=== PATIENT | female | born 1965 | race African-American/Black ===

== ENCOUNTER 2022-03-04 05:00 | Inpatient (IN) ==
[2022-03-04] MEDS ORDERED: SODIUM CHLORIDE 0.9% 500 ML IV STA (05:37)
[2022-03-04 06:17] LABS: Amorphous Crystals,Urine Occasional /HPF (Few); Bacteria,Urine Occasional /HPF (Few); Hyaline Casts,Urine 1 /LPF (0-3); Mucus,Urine Occasional /LPF (Occasional); RBC,Urine 2 /HPF (0-4); Squamous Epithelial Cell,Urine Occasional /HPF (0-10); White Blood Cell Casts,Urine 1 /LPF (<1)
[2022-03-04 06:18] LABS: Bilirubin,Urine Negative (Negative); Blood, Urine Negative (Negative); Glucose,Urine (UA) Negative (Negative); Ketones,Urine Negative (Negative); Nitrite,Urine Negative (Negative); Protein,Urine 30 mg/dL (Negative); Urine Appearance Clear (Clear); Urine Color Yellow (Yellow)
[2022-03-04 06:19] LABS: Urine Urobilinogen 0.2 eU/dL (<2.0)
[2022-03-04 06:20] LABS: Albumin 3.4 G/DL (3.4-5.0); Bilirubin,Total 0.6 MG/DL (0.20-1.00); Calcium 9.2 MG/DL (8.5-10.1); Osmolality,Calculated 278.3 MOS/KG (273-304); Potassium 3.8 MMOL/L (3.5-5.1); Total Protein 8.5 G/DL (6.4-8.2)
[2022-03-04 06:36] LABS: Basophils % 0.4 % (0.0-0.8); Eosinophils # 0.1 10*3/uL (0.0-0.87); Eosinophils % 0.7 % (0.00-10.9); Hemoglobin 7.4 GM/DL (12.0-16.0); Immature Granulocytes % 0.3 %; Immature Granulocytes Absolute 0.02 #; Lymphocytes # 1.3 10*3/uL (1.4-4.0); Lymphocytes % 17.8 % (21.3-54.2); Mean Corpuscular HGB Conc 27.2 GM/DL (32-36); Mean Corpuscular Volume 64.9 FL (87-102); Monocytes # 0.4 10*3/uL (0.11-0.8); Neutrophils % 74.8 % (38.7-73.9); Platelet Count 472 T/CUMM (130-400); Red Blood Count 4.19 MC/CUMM (3.8-5.5); Red Cell Distribution Width 20.5 % (9.3-17.3)
[2022-03-04 06:37] LABS: Hematocrit 27.2 VOL% (35.7-47.0)
[2022-03-04 06:42] LABS: Hypochromia Slight; Target Cells Slight
[2022-03-04 06:43] LABS: Platelet Estimate Increased
[2022-03-04] MEDS ORDERED: PIPERACILLIN/TAZOBACTAM 3,375 MG in SODIUM CHLORIDE 0.9% 100 ML IV STA (08:01)
[2022-03-04] MEDS ORDERED: MORPHINE 2 MG/1 ML SYRINGE IV PRN (08:26)
[2022-03-04] MEDS ORDERED: SODIUM CHLORIDE 0.9% 1,000 ML IV PRN (08:26)
[2022-03-04 09:02] LABS: % Iron Saturation 3.6 % (18-50); Ferritin 4.5 ng/mL (8-252)
[2022-03-04] MEDS: SODIUM CHLORIDE 0.9% 1,000 ML IV SCH ×2 (19:57→22:00)
[2022-03-04 21:38] LABS: Hematocrit 35.6 VOL% (35.7-47.0); Hemoglobin 10.8 GM/DL (12.0-16.0)
[2022-03-05 05:13] LABS: Basophils % 0.6 % (0.0-0.8); Eosinophils # 0.1 10*3/uL (0.0-0.87); Hematocrit 35.8 VOL% (35.7-47.0); Hemoglobin 10.8 GM/DL (12.0-16.0); Immature Granulocytes % 0.3 %; Immature Granulocytes Absolute 0.02 #; Lymphocytes # 1.5 10*3/uL (1.4-4.0); Lymphocytes % 22.2 % (21.3-54.2); Mean Corpuscular HGB Conc 30.2 GM/DL (32-36); Mean Corpuscular Volume 72.5 FL (87-102); Mean Platelet Volume 10.3 FL (9.6-12.0); Monocytes # 0.5 10*3/uL (0.11-0.8); Monocytes % 7.3 % (1.7-12.7); Neutrophils % 67.6 % (38.7-73.9); Platelet Count 396 T/CUMM (130-400); Red Blood Count 4.94 MC/CUMM (3.8-5.5); Red Cell Distribution Width 26.8 % (9.3-17.3); White Blood Count 6.6 T/CUMM (4-12)
[2022-03-05 05:17] LABS: Calcium 8.6 MG/DL (8.5-10.1); Potassium 3.7 MMOL/L (3.5-5.1)
[2022-03-05 05:52] LABS: Anisocytosis 1+; Platelet Estimate Normal
[2022-03-05 05:53] LABS: Hypochromia 1+; Tear Drop Cells Few
[2022-03-05] MEDS: SODIUM CHLORIDE 0.9% 1,000 ML IV SCH ×3 (06:28→17:54)
[2022-03-05] MEDS: ONDANSETRON 4 MG/2 ML VIAL IV PRN (07:52)
[2022-03-05] MEDS: PANTOPRAZOLE 40 MG VIAL IV SCH (09:25)
[2022-03-05] MEDS: FERRIC GLUCONATE COMPLEX 125 MG in SODIUM CHLORIDE 0.9% 100 ML IV SCH (09:29)
[2022-03-05] MEDS ORDERED: BISACODYL 5 MG TABLET PO ONE (12:00)
[2022-03-06 05:23] LABS: Basophils % 0.4 % (0.0-0.8); Eosinophils # 0.1 10*3/uL (0.0-0.87); Eosinophils % 1.8 % (0.00-10.9); Hematocrit 36.8 VOL% (35.7-47.0); Hemoglobin 11.1 GM/DL (12.0-16.0); Immature Granulocytes % 0.1 %; Immature Granulocytes Absolute 0.01 #; Lymphocytes # 1.5 10*3/uL (1.4-4.0); Lymphocytes % 20.6 % (21.3-54.2); Mean Corpuscular HGB Conc 30.2 GM/DL (32-36); Mean Corpuscular Volume 72.2 FL (87-102); Mean Platelet Volume 10.4 FL (9.6-12.0); Monocytes # 0.6 10*3/uL (0.11-0.8); Monocytes % 8.1 % (1.7-12.7); Platelet Count 405 T/CUMM (130-400); Red Cell Distribution Width 27.1 % (9.3-17.3); White Blood Count 7.1 T/CUMM (4-12)
[2022-03-06 05:45] LABS: Calcium 8.8 MG/DL (8.5-10.1); Osmolality,Calculated 277.3 MOS/KG (273-304); Potassium 3.6 MMOL/L (3.5-5.1)
[2022-03-06 05:53] LABS: Platelet Estimate Normal
[2022-03-06 05:54] LABS: Anisocytosis 1+; Hypochromia 1+; Macrocytosis 1+
[2022-03-06 05:55] LABS: Target Cells Few
[2022-03-06] MEDS: FERRIC GLUCONATE COMPLEX 125 MG in SODIUM CHLORIDE 0.9% 100 ML IV SCH (09:31)
[2022-03-06] MEDS: PANTOPRAZOLE 40 MG VIAL IV SCH (09:34)
[2022-03-06] MEDS: SODIUM CHLORIDE 0.9% 1,000 ML IV SCH ×2 (12:17→16:53)
[2022-03-06] MEDS ORDERED: POLYETHYLENE GLYCOL POWDER 255 GM BOTTLE PO ONE ×2 (15:28→18:00)
[2022-03-07] MEDS: SODIUM CHLORIDE 0.9% 1,000 ML IV SCH ×2 (04:39→16:30)
[2022-03-07 05:14] LABS: Calcium 9.3 MG/DL (8.5-10.1); Osmolality,Calculated 282.8 MOS/KG (273-304); Potassium 3.5 MMOL/L (3.5-5.1)
[2022-03-07 05:18] LABS: Basophils % 0.5 % (0.0-0.8); Eosinophils # 0.1 10*3/uL (0.0-0.87); Eosinophils % 0.7 % (0.00-10.9); Hematocrit 37.8 VOL% (35.7-47.0); Hemoglobin 11.4 GM/DL (12.0-16.0); Immature Granulocytes % 0.4 %; Immature Granulocytes Absolute 0.03 #; Lymphocytes # 1.4 10*3/uL (1.4-4.0); Lymphocytes % 16.3 % (21.3-54.2); Mean Corpuscular HGB Conc 30.2 GM/DL (32-36); Mean Corpuscular Volume 71.5 FL (87-102); Mean Platelet Volume 10.8 FL (9.6-12.0); Monocytes # 0.6 10*3/uL (0.11-0.8); Monocytes % 6.6 % (1.7-12.7); Neutrophils % 75.5 % (38.7-73.9); Platelet Count 379 T/CUMM (130-400); Red Blood Count 5.29 MC/CUMM (3.8-5.5); Red Cell Distribution Width 27.8 % (9.3-17.3); White Blood Count 8.4 T/CUMM (4-12)
[2022-03-07 05:24] LABS: Hypochromia Slight; Lymphocytes 14 % (20-55); Microcytosis Slight; Platelet Estimate Adequate; Total Cells Counted 100
[2022-03-07] MEDS ORDERED: LACTATED RINGERS 1,000 ML IV SCH (07:00)
[2022-03-07] MEDS: FERRIC GLUCONATE COMPLEX 125 MG in SODIUM CHLORIDE 0.9% 100 ML IV SCH (09:08)
[2022-03-07] MEDS: PANTOPRAZOLE 40 MG VIAL IV SCH (09:08)
[2022-03-07] MEDS ORDERED: propofoL 200 MG/20 ML VIAL IV ONE ×2 (12:11→12:26)
[2022-03-07] MEDS ORDERED: LIDOCAINE 2% 5 ML VIAL ONE (12:11)
[2022-03-08] MEDS: SODIUM CHLORIDE 0.9% 1,000 ML IV SCH (05:37)
[2022-03-08 05:42] LABS: Basophils % 0.6 % (0.0-0.8); Eosinophils # 0.2 10*3/uL (0.0-0.87); Eosinophils % 2.4 % (0.00-10.9); Hematocrit 36.8 VOL% (35.7-47.0); Immature Granulocytes % 0.3 %; Immature Granulocytes Absolute 0.02 #; Lymphocytes % 14.8 % (21.3-54.2); Mean Corpuscular HGB Conc 29.9 GM/DL (32-36); Mean Corpuscular Volume 72.6 FL (87-102); Mean Platelet Volume 10.4 FL (9.6-12.0); Monocytes # 0.5 10*3/uL (0.11-0.8); Monocytes % 6.8 % (1.7-12.7); Neutrophils % 75.1 % (38.7-73.9); Platelet Count 395 T/CUMM (130-400); Red Blood Count 5.07 MC/CUMM (3.8-5.5); Red Cell Distribution Width 28.5 % (9.3-17.3)
[2022-03-08 06:00] LABS: Hypochromia Slight; Target Cells Slight; Tear Drop Cells Slight
[2022-03-08 06:01] LABS: Microcytosis 1+; Ovalocytes Slight; Spherocytes Slight
[2022-03-08 06:02] LABS: Platelet Estimate Normal
[2022-03-08 06:08] LABS: Calcium 9.1 MG/DL (8.5-10.1); Potassium 3.2 MMOL/L (3.5-5.1)
[2022-03-08] MEDS ORDERED: LIDOCAINE 2% 5 ML VIAL ONE (06:28)
[2022-03-08] MEDS ORDERED: fentaNYL 100 MCG/2 ML VIAL ONE ×3 (06:28→07:49)
[2022-03-08] MEDS ORDERED: ROCURONIUM 50 MG/5 ML VIAL IV ONE (06:28)
[2022-03-08] MEDS ORDERED: propofoL 200 MG/20 ML VIAL IV ONE (06:28)
[2022-03-08] MEDS ORDERED: MIDAZOLAM 2 MG/2 ML VIAL ONE (06:29)
[2022-03-08] MEDS ORDERED: BUPIVACAINE MPF 0.25% 30 ML VIAL ONE (06:42)
[2022-03-08] MEDS ORDERED: DEXAMETHASONE 4 MG/1 ML VIAL ONE ×2 (06:42→08:24)
[2022-03-08] MEDS ORDERED: ALBUMIN 5% 25.0 GM/500 ML VIAL IV ONE (07:08)
[2022-03-08] MEDS ORDERED: LIDOCAINE 2% TOP JELLY 20 ML VIAL INTRAURETH ONE (07:25)
[2022-03-08] MEDS ORDERED: LACTATED RINGERS 1,000 ML IV SCH (07:30)
[2022-03-08] MEDS ORDERED: ACETAMINOPHEN INJ 1,000 MG/100 ML VIAL IV ONE (08:22)
[2022-03-08] MEDS ORDERED: ONDANSETRON 4 MG/2 ML VIAL ONE (08:24)
[2022-03-08] MEDS ORDERED: GLYCOPYRROLATE 0.4 MG/2 ML VIAL ONE (08:25)
[2022-03-08] MEDS ORDERED: NEOSTIGMINE 10 MG/10 ML VIAL ONE (08:26)
[2022-03-08] MEDS ORDERED: SEVOFLURANE 1 UNIT/15 MINUTE INH ONE (08:43)
[2022-03-08] MEDS ORDERED: LACTATED RINGERS 1,000 ML IV ONE (08:46)
[2022-03-08 09:10] LABS: Bacteria,Urine Occasional /HPF (Few); Mucus,Urine Occasional /LPF (Occasional); RBC,Urine <1 /HPF (0-4); Squamous Epithelial Cell,Urine Occasional /HPF (0-10)
[2022-03-08 09:11] LABS: Urine Appearance Clear (Clear); Urine Color Yellow (Yellow)
[2022-03-08 09:12] LABS: Bilirubin,Urine Negative (Negative); Blood, Urine Trace mg/dL (Negative); Glucose,Urine (UA) Negative (Negative); Ketones,Urine 15 mg/dL (Negative); Nitrite,Urine Negative (Negative); Protein,Urine Negative (Negative); Urine Urobilinogen 0.2 eU/dL (<2.0)
[2022-03-08] MEDS ORDERED: ONDANSETRON 4 MG/2 ML VIAL IV PRN (09:36)
[2022-03-08] MEDS: HYDROmorphone 1 MG/1 ML SYRINGE IV PRN ×2 (09:40→09:48)
[2022-03-08] MEDS ORDERED: ALBUTEROL/IPRATROPIUM 3 ML NEB RESP TX PRN (09:57)
[2022-03-08] MEDS ORDERED: HYDROmorphone 1 MG/1 ML SYRINGE IV PRN (09:57)
[2022-03-08] MEDS: PANTOPRAZOLE 40 MG VIAL IV SCH (11:15)
[2022-03-08] MEDS: FERRIC GLUCONATE COMPLEX 125 MG in SODIUM CHLORIDE 0.9% 100 ML IV SCH (11:15)
[2022-03-08] MEDS: KETOROLAC 15 MG/1 ML VIAL IV SCH ×3 (12:32→23:49)
[2022-03-08] MEDS: POTASSIUM CHLORIDE RIDER 10 MEQ/100 ML PREMIX IV PRN ×4 (12:34→15:50)
[2022-03-08] MEDS: LACTATED RINGERS 1,000 ML IV SCH ×2 (12:34→20:09)
[2022-03-09] MEDS: LACTATED RINGERS 1,000 ML IV SCH ×2 (03:28→15:50)
[2022-03-09 04:44] LABS: Basophils % 0.1 % (0.0-0.8); Hematocrit 34.6 VOL% (35.7-47.0); Hemoglobin 10.6 GM/DL (12.0-16.0); Immature Granulocytes % 0.4 %; Immature Granulocytes Absolute 0.06 #; Lymphocytes % 6.4 % (21.3-54.2); Mean Corpuscular HGB Conc 30.6 GM/DL (32-36); Mean Corpuscular Volume 72.4 FL (87-102); Mean Platelet Volume 10.4 FL (9.6-12.0); Monocytes # 0.8 10*3/uL (0.11-0.8); Monocytes % 5.1 % (1.7-12.7); Platelet Count 363 T/CUMM (130-400); Red Blood Count 4.78 MC/CUMM (3.8-5.5); Red Cell Distribution Width 29.1 % (9.3-17.3)
[2022-03-09] MEDS: KETOROLAC 15 MG/1 ML VIAL IV SCH (05:02)
[2022-03-09 05:29] LABS: Calcium 9.2 MG/DL (8.5-10.1); Osmolality,Calculated 276.4 MOS/KG (273-304); Potassium 3.7 MMOL/L (3.5-5.1)
[2022-03-09] MEDS: PANTOPRAZOLE 40 MG VIAL IV SCH (08:43)
[2022-03-09] MEDS: FERRIC GLUCONATE COMPLEX 125 MG in SODIUM CHLORIDE 0.9% 100 ML IV SCH (08:47)
[2022-03-09] MEDS ORDERED: LACTATED RINGERS 1,000 ML IV ONE (10:32)
[2022-03-09] MEDS: PIPERACILLIN/TAZOBACTAM 3,375 MG in SODIUM CHLORIDE 0.9% 100 ML IV SCH ×2 (11:48→20:00)
[2022-03-10] MEDS: PIPERACILLIN/TAZOBACTAM 3,375 MG in SODIUM CHLORIDE 0.9% 100 ML IV SCH ×3 (03:08→18:10)
[2022-03-10] MEDS: HYDROmorphone 1 MG/1 ML SYRINGE IV PRN ×2 (04:31→20:40)
[2022-03-10 05:43] LABS: Basophils % 0.4 % (0.0-0.8); Eosinophils % 0.2 % (0.00-10.9); Hematocrit 33.6 VOL% (35.7-47.0); Hemoglobin 10.2 GM/DL (12.0-16.0); Immature Granulocytes % 0.5 %; Immature Granulocytes Absolute 0.05 #; Lymphocytes # 1.1 10*3/uL (1.4-4.0); Lymphocytes % 9.6 % (21.3-54.2); Mean Corpuscular HGB Conc 30.4 GM/DL (32-36); Mean Corpuscular Volume 73.2 FL (87-102); Mean Platelet Volume 10.7 FL (9.6-12.0); Monocytes # 0.7 10*3/uL (0.11-0.8); Monocytes % 6.2 % (1.7-12.7); Neutrophils % 83.1 % (38.7-73.9); Platelet Count 323 T/CUMM (130-400); Red Blood Count 4.59 MC/CUMM (3.8-5.5); Red Cell Distribution Width 30.4 % (9.3-17.3)
[2022-03-10 06:00] LABS: Osmolality,Calculated 278.3 MOS/KG (273-304); Potassium 3.7 MMOL/L (3.5-5.1)
[2022-03-10] MEDS: LACTATED RINGERS 1,000 ML IV SCH ×3 (08:24→15:45)
[2022-03-10] MEDS: PANTOPRAZOLE 40 MG VIAL IV SCH (08:27)
[2022-03-10] MEDS: POTASSIUM CHLORIDE RIDER 10 MEQ/100 ML PREMIX IV PRN (16:26)
[2022-03-11] MEDS: PIPERACILLIN/TAZOBACTAM 3,375 MG in SODIUM CHLORIDE 0.9% 100 ML IV SCH ×3 (02:02→20:49)
[2022-03-11] MEDS: LACTATED RINGERS 1,000 ML IV SCH ×5 (04:11→21:33)
[2022-03-11 06:09] LABS: Osmolality,Calculated 273.5 MOS/KG (273-304); Potassium 3.8 MMOL/L (3.5-5.1)
[2022-03-11 06:27] LABS: Basophils # 0.1 10*3/uL (0.0-0.2); Basophils % 0.6 % (0.0-0.8); Eosinophils # 0.2 10*3/uL (0.0-0.87); Hematocrit 33.9 VOL% (35.7-47.0); Hemoglobin 10.4 GM/DL (12.0-16.0); Immature Granulocytes % 0.4 %; Immature Granulocytes Absolute 0.04 #; Lymphocytes # 1.1 10*3/uL (1.4-4.0); Lymphocytes % 12.1 % (21.3-54.2); Mean Corpuscular HGB Conc 30.7 GM/DL (32-36); Mean Corpuscular Volume 73.5 FL (87-102); Monocytes # 0.6 10*3/uL (0.11-0.8); Monocytes % 6.2 % (1.7-12.7); Neutrophils % 78.7 % (38.7-73.9); Platelet Count 281 T/CUMM (130-400); Red Blood Count 4.61 MC/CUMM (3.8-5.5); White Blood Count 9.1 T/CUMM (4-12)
[2022-03-11 06:49] LABS: Eosinophils 2 % (0-10); Hypochromia Slight; Lymphocytes 9 % (20-55); Microcytosis Slight; Platelet Estimate Adequate; Total Cells Counted 100
[2022-03-11] MEDS: PANTOPRAZOLE 40 MG VIAL IV SCH (09:22)
[2022-03-11] MEDS: POTASSIUM CHLORIDE RIDER 10 MEQ/100 ML PREMIX IV PRN ×3 (09:23→10:49)
[2022-03-12] MEDS: PIPERACILLIN/TAZOBACTAM 3,375 MG in SODIUM CHLORIDE 0.9% 100 ML IV SCH ×3 (04:37→21:23)
[2022-03-12] MEDS: LACTATED RINGERS 1,000 ML IV SCH ×2 (04:39→21:23)
[2022-03-12 05:24] LABS: Basophils # 0.1 10*3/uL (0.0-0.2); Basophils % 0.6 % (0.0-0.8); Eosinophils # 0.2 10*3/uL (0.0-0.87); Eosinophils % 1.8 % (0.00-10.9); Hematocrit 33.8 VOL% (35.7-47.0); Hemoglobin 10.2 GM/DL (12.0-16.0); Immature Granulocytes % 0.3 %; Immature Granulocytes Absolute 0.03 #; Lymphocytes # 1.3 10*3/uL (1.4-4.0); Lymphocytes % 14.3 % (21.3-54.2); Mean Corpuscular HGB Conc 30.2 GM/DL (32-36); Mean Corpuscular Volume 73.5 FL (87-102); Mean Platelet Volume 10.7 FL (9.6-12.0); Monocytes # 0.5 10*3/uL (0.11-0.8); Monocytes % 5.7 % (1.7-12.7); Neutrophils % 77.3 % (38.7-73.9); Platelet Count 302 T/CUMM (130-400); White Blood Count 8.7 T/CUMM (4-12)
[2022-03-12 05:27] LABS: Osmolality,Calculated 271.7 MOS/KG (273-304); Potassium 3.6 MMOL/L (3.5-5.1)
[2022-03-12 06:20] LABS: Hypochromia 1+; Microcytosis Slight; Target Cells Slight
[2022-03-12 06:21] LABS: Platelet Estimate Normal
[2022-03-12] MEDS: PANTOPRAZOLE 40 MG VIAL IV SCH (08:25)
[2022-03-13] MEDS: LACTATED RINGERS 1,000 ML IV SCH ×4 (02:09→21:04)
[2022-03-13] MEDS: PIPERACILLIN/TAZOBACTAM 3,375 MG in SODIUM CHLORIDE 0.9% 100 ML IV SCH ×3 (05:06→21:02)
[2022-03-13 05:19] LABS: Basophils # 0.1 10*3/uL (0.0-0.2); Basophils % 0.5 % (0.0-0.8); Eosinophils # 0.2 10*3/uL (0.0-0.87); Eosinophils % 1.9 % (0.00-10.9); Hematocrit 36.3 VOL% (35.7-47.0); Immature Granulocytes % 0.3 %; Immature Granulocytes Absolute 0.03 #; Lymphocytes # 1.4 10*3/uL (1.4-4.0); Lymphocytes % 14.1 % (21.3-54.2); Mean Corpuscular HGB Conc 30.3 GM/DL (32-36); Monocytes # 0.6 10*3/uL (0.11-0.8); Monocytes % 6.5 % (1.7-12.7); Neutrophils % 76.7 % (38.7-73.9); Platelet Count 249 T/CUMM (130-400); Red Blood Count 4.84 MC/CUMM (3.8-5.5); White Blood Count 9.6 T/CUMM (4-12)
[2022-03-13 05:29] LABS: Osmolality,Calculated 269.8 MOS/KG (273-304); Potassium 3.6 MMOL/L (3.5-5.1)
[2022-03-13 06:38] LABS: Anisocytosis 1+; Band Neutrophils 6 % (0-10); Eosinophils 3 % (0-10); Hypochromia Slight; Lymphocytes 13 % (20-55); Macrocytosis 1+; Platelet Estimate Normal; Total Cells Counted 100
[2022-03-13 06:39] LABS: Poikilocytosis Slight; Target Cells 1+; Tear Drop Cells Few
[2022-03-13] MEDS: PANTOPRAZOLE 40 MG VIAL IV SCH (08:45)
[2022-03-14] MEDS: LACTATED RINGERS 1,000 ML IV SCH (03:16)
[2022-03-14 05:13] LABS: Basophils # 0.1 10*3/uL (0.0-0.2); Basophils % 0.4 % (0.0-0.8); Eosinophils # 0.2 10*3/uL (0.0-0.87); Eosinophils % 1.5 % (0.00-10.9); Hematocrit 35.7 VOL% (35.7-47.0); Hemoglobin 10.8 GM/DL (12.0-16.0); Immature Granulocytes % 0.4 %; Immature Granulocytes Absolute 0.05 #; Lymphocytes # 1.2 10*3/uL (1.4-4.0); Lymphocytes % 10.9 % (21.3-54.2); Mean Corpuscular HGB Conc 30.3 GM/DL (32-36); Mean Corpuscular Volume 73.9 FL (87-102); Monocytes # 0.8 10*3/uL (0.11-0.8); Monocytes % 6.7 % (1.7-12.7); Neutrophils % 80.1 % (38.7-73.9); Platelet Count 302 T/CUMM (130-400); Red Blood Count 4.83 MC/CUMM (3.8-5.5); White Blood Count 11.3 T/CUMM (4-12)
[2022-03-14 05:27] LABS: Calcium 9.3 MG/DL (8.5-10.1); Osmolality,Calculated 263.2 MOS/KG (273-304); Potassium 3.6 MMOL/L (3.5-5.1)
[2022-03-14] MEDS: PIPERACILLIN/TAZOBACTAM 3,375 MG in SODIUM CHLORIDE 0.9% 100 ML IV SCH (05:30)
[2022-03-14] MEDS: PANTOPRAZOLE 40 MG VIAL IV SCH (08:22)
[2022-03-14] MEDS: DOCUSATE SODIUM 100 MG CAPSULE PO SCH ×2 (10:48→20:21)
[2022-03-14] MEDS ORDERED: BISACODYL 10 MG SUPP RECTAL PRN (15:26)
[2022-03-14] MEDS: ONDANSETRON 4 MG/2 ML VIAL IV PRN (17:58)
[2022-03-15 03:39] LABS: Basophils # 0.1 10*3/uL (0.0-0.2); Basophils % 0.3 % (0.0-0.8); Eosinophils % 0.2 % (0.00-10.9); Hematocrit 36.1 VOL% (35.7-47.0); Hemoglobin 10.9 GM/DL (12.0-16.0); Immature Granulocytes Absolute 0.18 #; Lymphocytes % 5.5 % (21.3-54.2); Mean Corpuscular HGB Conc 30.2 GM/DL (32-36); Monocytes # 1.4 10*3/uL (0.11-0.8); Monocytes % 7.9 % (1.7-12.7); Neutrophils % 85.1 % (38.7-73.9); Platelet Count 338 T/CUMM (130-400); Red Blood Count 4.88 MC/CUMM (3.8-5.5); White Blood Count 17.4 T/CUMM (4-12)
[2022-03-15 03:54] LABS: Osmolality,Calculated 271.7 MOS/KG (273-304); Potassium 3.4 MMOL/L (3.5-5.1)
[2022-03-15] MEDS ORDERED: POTASSIUM CHLORIDE 20 MEQ TABLET PO ONE (07:57)
[2022-03-15] MEDS ORDERED: LACTATED RINGERS 1,000 ML IV ONE (08:39)
[2022-03-15] MEDS: DOCUSATE SODIUM 100 MG CAPSULE PO SCH ×2 (08:56→20:11)
[2022-03-15] MEDS: PANTOPRAZOLE 40 MG VIAL IV SCH (09:19)
[2022-03-15] MEDS: ONDANSETRON 4 MG/2 ML VIAL IV PRN (10:26)
[2022-03-15] MEDS: LACTATED RINGERS 1,000 ML IV SCH ×2 (10:50→18:14)
[2022-03-15] MEDS: POTASSIUM CHLORIDE RIDER 10 MEQ/100 ML PREMIX IV PRN ×2 (10:50→18:05)
[2022-03-15 11:12] LABS: Bacteria,Urine Occasional /HPF (Few); Mucus,Urine Occasional /LPF (Occasional); Squamous Epithelial Cell,Urine Occasional /HPF (0-10)
[2022-03-15 11:14] LABS: Bilirubin,Urine Small mg/dL (Negative); Blood, Urine Trace mg/dL (Negative); Glucose,Urine (UA) Negative (Negative); Ketones,Urine >160 mg/dL (Negative); Nitrite,Urine Negative (Negative); Protein,Urine Negative (Negative); Urine Appearance Clear (Clear); Urine Color Yellow (Yellow); Urine Specific Gravity 1.015 (1.001-1.035); Urine Urobilinogen 0.2 eU/dL (<2.0)
[2022-03-15] MEDS: metroNIDAZOLE INJ 500 MG/100 ML PREMIX IV SCH ×2 (12:46→20:11)
[2022-03-15] MEDS: PIPERACILLIN/TAZOBACTAM 3,375 MG in SODIUM CHLORIDE 0.9% 100 ML IV SCH ×2 (12:48→21:18)
[2022-03-15] MEDS: VANCOMYCIN 125 MG CAPSULE PO SCH (18:43)
[2022-03-15] MEDS: MORPHINE 2 MG/1 ML SYRINGE IV PRN (21:24)
[2022-03-16] MEDS: VANCOMYCIN 125 MG CAPSULE PO SCH ×4 (00:33→17:47)
[2022-03-16] MEDS: ONDANSETRON 4 MG/2 ML VIAL IV PRN ×2 (01:34→11:52)
[2022-03-16] MEDS: POTASSIUM CHLORIDE RIDER 10 MEQ/100 ML PREMIX IV PRN (02:54)
[2022-03-16] MEDS: metroNIDAZOLE INJ 500 MG/100 ML PREMIX IV SCH (04:20)
[2022-03-16] MEDS: LACTATED RINGERS 1,000 ML IV SCH ×3 (05:08→16:50)
[2022-03-16] MEDS: PIPERACILLIN/TAZOBACTAM 3,375 MG in SODIUM CHLORIDE 0.9% 100 ML IV SCH (05:38)
[2022-03-16 06:17] LABS: Basophils % 0.3 % (0.0-0.8); Eosinophils # 0.1 10*3/uL (0.0-0.87); Eosinophils % 0.4 % (0.00-10.9); Hematocrit 36.3 VOL% (35.7-47.0); Immature Granulocytes % 0.5 %; Immature Granulocytes Absolute 0.08 #; Lymphocytes % 6.7 % (21.3-54.2); Mean Corpuscular HGB Conc 30.3 GM/DL (32-36); Mean Corpuscular Volume 73.9 FL (87-102); Monocytes # 1.3 10*3/uL (0.11-0.8); Monocytes % 8.3 % (1.7-12.7); Neutrophils % 83.8 % (38.7-73.9); Platelet Count 327 T/CUMM (130-400); Red Blood Count 4.91 MC/CUMM (3.8-5.5); White Blood Count 15.1 T/CUMM (4-12)
[2022-03-16 06:42] LABS: Calcium 9.1 MG/DL (8.5-10.1); Osmolality,Calculated 273.5 MOS/KG (273-304); Potassium 4.2 MMOL/L (3.5-5.1)
[2022-03-16] MEDS: PANTOPRAZOLE 40 MG VIAL IV SCH (10:00)
[2022-03-16] MEDS: DOCUSATE SODIUM 100 MG CAPSULE PO SCH ×2 (10:00→20:35)
[2022-03-16] MEDS: METOPROLOL TARTRATE 25 MG TABLET PO SCH ×2 (12:59→20:35)
[2022-03-16] MEDS: ACETAMINOPHEN 325 MG TABLET PO PRN ×2 (12:59→17:51)
[2022-03-16] MEDS: MORPHINE 2 MG/1 ML SYRINGE IV PRN (20:36)
[2022-03-17] MEDS: VANCOMYCIN 125 MG CAPSULE PO SCH ×4 (01:25→18:00)
[2022-03-17] MEDS: ACETAMINOPHEN 325 MG TABLET PO PRN (01:25)
[2022-03-17] MEDS: LACTATED RINGERS 1,000 ML IV SCH ×3 (01:51→17:06)
[2022-03-17 07:05] LABS: Basophils % 0.2 % (0.0-0.8); Eosinophils % 0.3 % (0.00-10.9); Hematocrit 36.6 VOL% (35.7-47.0); Hemoglobin 11.4 GM/DL (12.0-16.0); Immature Granulocytes % 0.3 %; Immature Granulocytes Absolute 0.04 #; Lymphocytes % 7.3 % (21.3-54.2); Mean Corpuscular HGB Conc 31.1 GM/DL (32-36); Mean Corpuscular Volume 74.5 FL (87-102); Monocytes % 7.2 % (1.7-12.7); Neutrophils % 84.7 % (38.7-73.9); Platelet Count 341 T/CUMM (130-400); Red Blood Count 4.91 MC/CUMM (3.8-5.5); White Blood Count 13.1 T/CUMM (4-12)
[2022-03-17 07:23] LABS: Calcium 9.2 MG/DL (8.5-10.1); Osmolality,Calculated 273.5 MOS/KG (273-304); Potassium 3.1 MMOL/L (3.5-5.1)
[2022-03-17 07:25] LABS: Platelet Estimate Normal
[2022-03-17 07:26] LABS: Anisocytosis 1+; Burr Cells Few; Target Cells Few
[2022-03-17 07:28] LABS: Hypochromia Slight; Macrocytosis Slight
[2022-03-17] MEDS: DOCUSATE SODIUM 100 MG CAPSULE PO SCH ×2 (09:12→21:21)
[2022-03-17] MEDS: POTASSIUM CHLORIDE 20 MEQ TABLET PO SCH ×2 (09:12→11:17)
[2022-03-17] MEDS: PANTOPRAZOLE 40 MG VIAL IV SCH (09:13)
[2022-03-17] MEDS: METOPROLOL TARTRATE 25 MG TABLET PO SCH ×2 (09:13→21:21)
[2022-03-17] MEDS: MORPHINE 2 MG/1 ML SYRINGE IV PRN ×2 (10:02→21:22)
[2022-03-17] MEDS: lisinopriL 10 MG TABLET PO SCH (12:17)
[2022-03-17] MEDS: ONDANSETRON 4 MG/2 ML VIAL IV PRN (21:27)
[2022-03-18] MEDS: LACTATED RINGERS 1,000 ML IV SCH ×3 (00:24→12:13)
[2022-03-18] MEDS: VANCOMYCIN 125 MG CAPSULE PO SCH ×2 (00:24→06:20)
[2022-03-18 06:19] LABS: Basophils % 0.2 % (0.0-0.8); Eosinophils % 0.3 % (0.00-10.9); Hematocrit 38.3 VOL% (35.7-47.0); Hemoglobin 11.8 GM/DL (12.0-16.0); Immature Granulocytes % 0.2 %; Immature Granulocytes Absolute 0.03 #; Lymphocytes # 1.2 10*3/uL (1.4-4.0); Lymphocytes % 9.5 % (21.3-54.2); Mean Corpuscular HGB Conc 30.8 GM/DL (32-36); Mean Corpuscular Volume 74.5 FL (87-102); Monocytes % 8.2 % (1.7-12.7); Neutrophils % 81.6 % (38.7-73.9); Platelet Count 351 T/CUMM (130-400); Red Blood Count 5.14 MC/CUMM (3.8-5.5); White Blood Count 12.4 T/CUMM (4-12)
[2022-03-18 06:35] LABS: Calcium 9.2 MG/DL (8.5-10.1); Osmolality,Calculated 270.8 MOS/KG (273-304); Potassium 3.8 MMOL/L (3.5-5.1)
[2022-03-18] MEDS: METOPROLOL TARTRATE 25 MG TABLET PO SCH (09:43)
[2022-03-18] MEDS: DOCUSATE SODIUM 100 MG CAPSULE PO SCH (09:43)
[2022-03-18] MEDS: lisinopriL 10 MG TABLET PO SCH (09:43)
[2022-03-18] MEDS: PANTOPRAZOLE 40 MG VIAL IV SCH (09:45)
[2022-03-18] MEDS: ONDANSETRON 4 MG/2 ML VIAL IV PRN (09:49)
[2022-03-18 11:33] VITALS: BP 157/80
== END 2022-03-18 13:45 | disposition home or self-care (01) | DRG 330 ==
LOC: N.ED 05:00 → N.EDINP 08:26 → SUATTDRO 08:26 → N.3E 09:02
PROVIDERS: ADMIT Internal Medicine; ATTEND Hospitalist
PROC: COLONBX (2022-03-07 10:20)

== ENCOUNTER 2022-03-19 08:59 | Inpatient (IN) ==
[2022-03-19] MEDS ORDERED: SODIUM CHLORIDE 0.9% 1,000 ML IV STA (10:50)
[2022-03-19] MEDS ORDERED: HYDROmorphone 1 MG/1 ML SYRINGE IV STA (12:18)
[2022-03-19] MEDS ORDERED: ONDANSETRON 4 MG/2 ML VIAL IV STA (12:18)
[2022-03-19 12:27] LABS: Basophils % 0.1 % (0.0-0.8); Eosinophils % 0.1 % (0.00-10.9); Hematocrit 34.7 VOL% (35.7-47.0); Hemoglobin 10.7 GM/DL (12.0-16.0); Immature Granulocytes % 0.5 %; Immature Granulocytes Absolute 0.07 #; Lymphocytes # 1.1 10*3/uL (1.4-4.0); Lymphocytes % 7.4 % (21.3-54.2); Mean Corpuscular HGB Conc 30.8 GM/DL (32-36); Mean Corpuscular Volume 73.7 FL (87-102); Monocytes # 1.1 10*3/uL (0.11-0.8); Neutrophils % 84.9 % (38.7-73.9); Platelet Count 419 T/CUMM (130-400); Red Blood Count 4.71 MC/CUMM (3.8-5.5); White Blood Count 15.1 T/CUMM (4-12)
[2022-03-19 12:30] LABS: Bilirubin,Urine Negative (Negative); Blood, Urine Trace mg/dL (Negative); Glucose,Urine (UA) Negative (Negative); Ketones,Urine 40 mg/dL (Negative); Mucus,Urine Occasional /LPF (Occasional); Nitrite,Urine Negative (Negative); Protein,Urine 30 mg/dL (Negative); RBC,Urine 1 /HPF (0-4); Squamous Epithelial Cell,Urine Occasional /HPF (0-10); Urine Appearance Clear (Clear); Urine Color Yellow (Yellow); Urine Urobilinogen 0.2 eU/dL (<2.0)
[2022-03-19 12:47] LABS: Albumin 2.6 G/DL (3.4-5.0); Bilirubin,Total 0.5 MG/DL (0.20-1.00); Calcium 9.5 MG/DL (8.5-10.1); Osmolality,Calculated 273.5 MOS/KG (273-304); Potassium 3.4 MMOL/L (3.5-5.1); Total Protein 8.1 G/DL (6.4-8.2)
[2022-03-19 12:53] LABS: Anisocytosis 1+; Lymphocytes 6 % (20-55); Platelet Estimate Normal; Total Cells Counted 100
[2022-03-19] MEDS ORDERED: DOCUSATE SODIUM 100 MG CAPSULE PO PRN (18:14)
[2022-03-19] MEDS ORDERED: hydrALAZINE 20 MG/1 ML VIAL IV PRN (18:14)
[2022-03-19] MEDS: HYDROmorphone 1 MG/1 ML SYRINGE IV PRN ×2 (18:47→22:34)
[2022-03-19] MEDS: LACTATED RINGERS 1,000 ML IV SCH (18:50)
[2022-03-19] MEDS: carvediloL 3.125 MG TABLET PO SCH (22:21)
[2022-03-19] MEDS: VANCOMYCIN 125 MG CAPSULE PO SCH (22:21)
[2022-03-19] MEDS: ONDANSETRON 4 MG/2 ML VIAL IV PRN (22:35)
[2022-03-20] MEDS: VANCOMYCIN 125 MG CAPSULE PO SCH ×4 (02:06→20:53)
[2022-03-20 04:53] LABS: Basophils # 0.1 10*3/uL (0.0-0.2); Basophils % 0.3 % (0.0-0.8); Eosinophils # 0.1 10*3/uL (0.0-0.87); Eosinophils % 0.4 % (0.00-10.9); Hematocrit 33.9 VOL% (35.7-47.0); Hemoglobin 10.5 GM/DL (12.0-16.0); Immature Granulocytes % 0.5 %; Immature Granulocytes Absolute 0.08 #; Lymphocytes # 1.1 10*3/uL (1.4-4.0); Mean Corpuscular Volume 74.3 FL (87-102); Monocytes # 1.3 10*3/uL (0.11-0.8); Monocytes % 8.4 % (1.7-12.7); Neutrophils % 83.4 % (38.7-73.9); Platelet Count 396 T/CUMM (130-400); Red Blood Count 4.56 MC/CUMM (3.8-5.5); White Blood Count 14.9 T/CUMM (4-12)
[2022-03-20 05:07] LABS: Calcium 9.2 MG/DL (8.5-10.1); Osmolality,Calculated 275.4 MOS/KG (273-304); Potassium 3.4 MMOL/L (3.5-5.1)
[2022-03-20] MEDS ORDERED: POTASSIUM CHLORIDE 20 MEQ TABLET PO ONE (07:29)
[2022-03-20] MEDS: HYDROmorphone 1 MG/1 ML SYRINGE IV PRN ×3 (08:26→20:52)
[2022-03-20] MEDS: PANTOPRAZOLE 40 MG TABLET PO SCH (08:28)
[2022-03-20] MEDS: carvediloL 3.125 MG TABLET PO SCH ×2 (08:28→21:01)
[2022-03-20] MEDS: lisinopriL 10 MG TABLET PO SCH (08:28)
[2022-03-20] MEDS: POLYETHYLENE GLYCOL POWDER 17 GM PACK PO SCH ×2 (09:29→10:03)
[2022-03-20] MEDS ORDERED: POTASSIUM CHLORIDE RIDER 10 MEQ/100 ML PREMIX IV SCH (10:00)
[2022-03-20] MEDS ORDERED: POTASSIUM CHLORIDE INJ 40 MEQ in SODIUM CHLORIDE 0.9% 500 ML IV ONE (11:00)
[2022-03-20] MEDS: LACTATED RINGERS 1,000 ML IV SCH (11:42)
[2022-03-20] MEDS: METOCLOPRAMIDE 10 MG/2 ML VIAL IV SCH ×3 (12:05→23:22)
[2022-03-20] MEDS: ACETAMINOPHEN 325 MG TABLET PO PRN (14:12)
[2022-03-20] MEDS: DOCUSATE SODIUM 100 MG CAPSULE PO SCH (21:02)
[2022-03-21] MEDS: HYDROmorphone 1 MG/1 ML SYRINGE IV PRN ×4 (02:09→17:20)
[2022-03-21] MEDS: VANCOMYCIN 125 MG CAPSULE PO SCH ×4 (02:10→20:59)
[2022-03-21] MEDS: METOCLOPRAMIDE 10 MG/2 ML VIAL IV SCH ×3 (05:00→17:11)
[2022-03-21] MEDS: LACTATED RINGERS 1,000 ML IV SCH ×2 (05:09→20:37)
[2022-03-21 06:00] LABS: Basophils % 0.2 % (0.0-0.8); Eosinophils # 0.1 10*3/uL (0.0-0.87); Eosinophils % 0.6 % (0.00-10.9); Hematocrit 34.2 VOL% (35.7-47.0); Hemoglobin 10.5 GM/DL (12.0-16.0); Immature Granulocytes % 0.5 %; Immature Granulocytes Absolute 0.07 #; Lymphocytes # 1.1 10*3/uL (1.4-4.0); Lymphocytes % 7.5 % (21.3-54.2); Mean Corpuscular HGB Conc 30.7 GM/DL (32-36); Mean Corpuscular Volume 74.3 FL (87-102); Monocytes # 1.2 10*3/uL (0.11-0.8); Monocytes % 8.2 % (1.7-12.7); Platelet Count 446 T/CUMM (130-400); White Blood Count 14.7 T/CUMM (4-12)
[2022-03-21 06:15] LABS: Albumin 2.4 G/DL (3.4-5.0); Bilirubin,Total 0.5 MG/DL (0.20-1.00); Calcium 9.5 MG/DL (8.5-10.1); Osmolality,Calculated 271.7 MOS/KG (273-304); Potassium 3.8 MMOL/L (3.5-5.1); Total Protein 7.6 G/DL (6.4-8.2)
[2022-03-21] MEDS: DOCUSATE SODIUM 100 MG CAPSULE PO SCH ×2 (08:12→20:59)
[2022-03-21] MEDS: carvediloL 3.125 MG TABLET PO SCH ×2 (08:13→20:59)
[2022-03-21] MEDS: lisinopriL 10 MG TABLET PO SCH (08:13)
[2022-03-21] MEDS: PANTOPRAZOLE 40 MG TABLET PO SCH (08:13)
[2022-03-21] MEDS: POLYETHYLENE GLYCOL POWDER 17 GM PACK PO SCH (08:13)
[2022-03-21] MEDS: ACETAMINOPHEN 325 MG TABLET PO PRN (21:00)
[2022-03-22] MEDS: METOCLOPRAMIDE 10 MG/2 ML VIAL IV SCH ×2 (00:09→05:58)
[2022-03-22] MEDS: HYDROmorphone 1 MG/1 ML SYRINGE IV PRN ×4 (00:10→20:27)
[2022-03-22] MEDS: VANCOMYCIN 125 MG CAPSULE PO SCH ×4 (01:06→20:30)
[2022-03-22 06:13] LABS: Basophils % 0.2 % (0.0-0.8); Eosinophils # 0.1 10*3/uL (0.0-0.87); Eosinophils % 0.4 % (0.00-10.9); Hematocrit 35.6 VOL% (35.7-47.0); Hemoglobin 10.8 GM/DL (12.0-16.0); Immature Granulocytes % 0.5 %; Immature Granulocytes Absolute 0.06 #; Lymphocytes % 8.2 % (21.3-54.2); Mean Corpuscular HGB Conc 30.3 GM/DL (32-36); Mean Corpuscular Volume 73.9 FL (87-102); Monocytes # 1.3 10*3/uL (0.11-0.8); Monocytes % 9.9 % (1.7-12.7); Neutrophils % 80.8 % (38.7-73.9); Platelet Count 487 T/CUMM (130-400); Red Blood Count 4.82 MC/CUMM (3.8-5.5); White Blood Count 12.7 T/CUMM (4-12)
[2022-03-22 06:36] LABS: Albumin 2.2 G/DL (3.4-5.0); Bilirubin,Direct 0.22 MG/DL (0.0-0.20); Bilirubin,Indirect 0.5 MG/DL (0.0-1.0); Bilirubin,Total 0.7 MG/DL (0.20-1.00); Calcium 8.9 MG/DL (8.5-10.1); Hypochromia 1+; Potassium 3.6 MMOL/L (3.5-5.1); Total Protein 7.7 G/DL (6.4-8.2)
[2022-03-22 06:37] LABS: Microcytosis 1+; Ovalocytes Slight; Platelet Estimate Increased; Target Cells Few
[2022-03-22] MEDS: PANTOPRAZOLE 40 MG TABLET PO SCH (08:26)
[2022-03-22] MEDS: POLYETHYLENE GLYCOL POWDER 17 GM PACK PO SCH (08:26)
[2022-03-22] MEDS: lisinopriL 10 MG TABLET PO SCH (08:26)
[2022-03-22] MEDS: DOCUSATE SODIUM 100 MG CAPSULE PO SCH (08:26)
[2022-03-22] MEDS: carvediloL 3.125 MG TABLET PO SCH ×2 (08:26→20:30)
[2022-03-22] MEDS: LACTATED RINGERS 1,000 ML IV SCH (13:44)
[2022-03-23] MEDS: HYDROmorphone 1 MG/1 ML SYRINGE IV PRN ×2 (01:27→05:31)
[2022-03-23] MEDS: LACTATED RINGERS 1,000 ML IV SCH (01:31)
[2022-03-23] MEDS: VANCOMYCIN 125 MG CAPSULE PO SCH ×4 (02:49→21:12)
[2022-03-23 04:28] LABS: Basophils % 0.2 % (0.0-0.8); Eosinophils % 0.3 % (0.00-10.9); Hematocrit 33.4 VOL% (35.7-47.0); Hemoglobin 10.4 GM/DL (12.0-16.0); Immature Granulocytes % 0.6 %; Immature Granulocytes Absolute 0.07 #; Lymphocytes % 8.6 % (21.3-54.2); Mean Corpuscular HGB Conc 31.1 GM/DL (32-36); Mean Corpuscular Volume 73.4 FL (87-102); Monocytes # 1.2 10*3/uL (0.11-0.8); Monocytes % 10.5 % (1.7-12.7); Neutrophils % 79.8 % (38.7-73.9); Platelet Count 468 T/CUMM (130-400); Red Blood Count 4.55 MC/CUMM (3.8-5.5); White Blood Count 11.7 T/CUMM (4-12)
[2022-03-23 04:53] LABS: Hypochromia Slight; Lymphocytes 10 % (20-55); Microcytosis Slight; Platelet Estimate Adequate; Total Cells Counted 100
[2022-03-23 04:58] LABS: Bilirubin,Total 0.6 MG/DL (0.20-1.00); Osmolality,Calculated 273.5 MOS/KG (273-304); Potassium 3.5 MMOL/L (3.5-5.1); Total Protein 7.4 G/DL (6.4-8.2)
[2022-03-23] MEDS ORDERED: LACTATED RINGERS 1,000 ML IV SCH (09:00)
[2022-03-23] MEDS ORDERED: carvediloL 12.5 MG TABLET PO SCH (09:00)
[2022-03-23] MEDS: lisinopriL 10 MG TABLET PO SCH (09:13)
[2022-03-23] MEDS: PANTOPRAZOLE 40 MG TABLET PO SCH (09:13)
[2022-03-23] MEDS: oxyCODONE/ACETAMINOPHEN 5-325 MG TABLET PO PRN ×3 (11:22→21:12)
[2022-03-23] MEDS: SUCRALFATE 1 GM/10 ML UDCUP PO SCH ×3 (12:58→21:11)
[2022-03-23] MEDS: ONDANSETRON 4 MG/2 ML VIAL IV PRN (19:18)
[2022-03-23] MEDS: carvediloL 25 MG TABLET PO SCH (21:12)
[2022-03-24] MEDS: ONDANSETRON 4 MG/2 ML VIAL IV PRN ×2 (01:08→19:12)
[2022-03-24] MEDS: oxyCODONE/ACETAMINOPHEN 5-325 MG TABLET PO PRN ×3 (01:13→22:18)
[2022-03-24] MEDS: VANCOMYCIN 125 MG CAPSULE PO SCH ×4 (03:20→22:16)
[2022-03-24 05:34] LABS: Basophils % 0.2 % (0.0-0.8); Eosinophils % 0.1 % (0.00-10.9); Hematocrit 36.3 VOL% (35.7-47.0); Hemoglobin 11.3 GM/DL (12.0-16.0); Immature Granulocytes % 0.6 %; Immature Granulocytes Absolute 0.08 #; Lymphocytes % 7.1 % (21.3-54.2); Mean Corpuscular HGB Conc 31.1 GM/DL (32-36); Mean Corpuscular Volume 74.2 FL (87-102); Monocytes # 1.2 10*3/uL (0.11-0.8); Monocytes % 8.8 % (1.7-12.7); Neutrophils % 83.2 % (38.7-73.9); Platelet Count 527 T/CUMM (130-400); Red Blood Count 4.89 MC/CUMM (3.8-5.5); White Blood Count 13.8 T/CUMM (4-12)
[2022-03-24 05:55] LABS: Albumin 2.3 G/DL (3.4-5.0); Bilirubin,Total 0.7 MG/DL (0.20-1.00); Calcium 9.5 MG/DL (8.5-10.1); Osmolality,Calculated 273.5 MOS/KG (273-304); Potassium 3.1 MMOL/L (3.5-5.1); Total Protein 8.2 G/DL (6.4-8.2)
[2022-03-24] MEDS: LACTATED RINGERS 1,000 ML IV SCH ×3 (07:57→17:13)
[2022-03-24] MEDS: SUCRALFATE 1 GM/10 ML UDCUP PO SCH ×4 (08:51→22:16)
[2022-03-24] MEDS: lisinopriL 10 MG TABLET PO SCH (08:52)
[2022-03-24] MEDS: PANTOPRAZOLE 40 MG TABLET PO SCH (08:52)
[2022-03-24] MEDS: carvediloL 25 MG TABLET PO SCH ×2 (08:52→22:16)
[2022-03-24] MEDS: POTASSIUM CHLORIDE 20 MEQ TABLET PO PRN ×4 (08:53→15:12)
[2022-03-24 12:03] LABS: Risk Ratio 4.38; VLDL Cholesterol 21.2 MG/DL
[2022-03-25] MEDS: ONDANSETRON 4 MG/2 ML VIAL IV PRN (02:48)
[2022-03-25] MEDS: VANCOMYCIN 125 MG CAPSULE PO SCH ×4 (03:21→23:36)
[2022-03-25] MEDS: LACTATED RINGERS 1,000 ML IV SCH ×2 (03:22→22:30)
[2022-03-25 06:19] LABS: Basophils # 0.1 10*3/uL (0.0-0.2); Basophils % 0.3 % (0.0-0.8); Eosinophils # 0.1 10*3/uL (0.0-0.87); Eosinophils % 0.9 % (0.00-10.9); Hematocrit 36.2 VOL% (35.7-47.0); Immature Granulocytes % 0.6 %; Immature Granulocytes Absolute 0.09 #; Lymphocytes # 1.1 10*3/uL (1.4-4.0); Lymphocytes % 6.9 % (21.3-54.2); Mean Corpuscular HGB Conc 30.4 GM/DL (32-36); Mean Corpuscular Volume 74.2 FL (87-102); Monocytes # 1.1 10*3/uL (0.11-0.8); Monocytes % 7.3 % (1.7-12.7); Platelet Count 487 T/CUMM (130-400); Red Blood Count 4.88 MC/CUMM (3.8-5.5); White Blood Count 15.4 T/CUMM (4-12)
[2022-03-25 06:39] LABS: Albumin 2.1 G/DL (3.4-5.0); Bilirubin,Total 0.6 MG/DL (0.20-1.00); Calcium 9.1 MG/DL (8.5-10.1); Osmolality,Calculated 280.1 MOS/KG (273-304); Potassium 3.7 MMOL/L (3.5-5.1); Total Protein 7.8 G/DL (6.4-8.2)
[2022-03-25 07:03] LABS: Eosinophils 1 % (0-10); Lymphocytes 4 % (20-55); Total Cells Counted 100
[2022-03-25 07:04] LABS: Hypochromia Slight; Microcytosis Slight; Platelet Estimate Increased
[2022-03-25 09:39] LABS: INR 1.2; PT Patient Result 13.3 SECS (10.1-12.1)
[2022-03-25] MEDS: SUCRALFATE 1 GM/10 ML UDCUP PO SCH ×4 (11:01→23:36)
[2022-03-25] MEDS: lisinopriL 10 MG TABLET PO SCH (11:02)
[2022-03-25] MEDS: PANTOPRAZOLE 40 MG TABLET PO SCH (11:02)
[2022-03-25] MEDS: carvediloL 25 MG TABLET PO SCH ×2 (11:02→21:03)
[2022-03-25] MEDS ORDERED: DIAZEPAM 5 MG TABLET PO ONE (12:35)
[2022-03-25] MEDS ORDERED: MIDAZOLAM 2 MG/2 ML VIAL IV ONE (12:36)
[2022-03-25] MEDS ORDERED: fentaNYL 100 MCG/2 ML VIAL IV ONE (12:36)
[2022-03-25] MEDS ORDERED: SODIUM CHLORIDE 0.45% 1,000 ML IV SCH (13:00)
[2022-03-25] MEDS: oxyCODONE/ACETAMINOPHEN 5-325 MG TABLET PO PRN (21:03)
[2022-03-25] MEDS: MULTIVITAMIN INJ 10 ML in AMINO ACIDS/DEXT/LYTES 5-20% 2,000 ML IV SCH (21:04)
[2022-03-25] MEDS: FAT EMULSION 20% 250 ML IV SCH (21:04)
[2022-03-25] MEDS: PIPERACILLIN/TAZOBACTAM 3,375 MG in SODIUM CHLORIDE 0.9% 100 ML IV SCH (23:36)
[2022-03-26] MEDS: PIPERACILLIN/TAZOBACTAM 3,375 MG in SODIUM CHLORIDE 0.9% 100 ML IV SCH ×3 (01:31→15:31)
[2022-03-26] MEDS: VANCOMYCIN 125 MG CAPSULE PO SCH ×4 (03:30→21:04)
[2022-03-26] MEDS: LACTATED RINGERS 1,000 ML IV SCH ×3 (03:40→18:15)
[2022-03-26 05:31] LABS: Basophils % 0.2 % (0.0-0.8); Eosinophils # 0.2 10*3/uL (0.0-0.87); Eosinophils % 1.3 % (0.00-10.9); Hematocrit 36.7 VOL% (35.7-47.0); Hemoglobin 11.4 GM/DL (12.0-16.0); Immature Granulocytes % 0.5 %; Immature Granulocytes Absolute 0.08 #; Lymphocytes # 0.9 10*3/uL (1.4-4.0); Lymphocytes % 5.5 % (21.3-54.2); Mean Corpuscular HGB Conc 31.1 GM/DL (32-36); Mean Corpuscular Volume 74.6 FL (87-102); Monocytes # 1.2 10*3/uL (0.11-0.8); Monocytes % 7.2 % (1.7-12.7); Neutrophils % 85.3 % (38.7-73.9); Platelet Count 405 T/CUMM (130-400); Red Blood Count 4.92 MC/CUMM (3.8-5.5); White Blood Count 16.1 T/CUMM (4-12)
[2022-03-26 05:52] LABS: Calcium 8.6 MG/DL (8.5-10.1); Osmolality,Calculated 279.4 MOS/KG (273-304); Phosphorous 2.9 MG/DL (2.5-4.9); Potassium 3.6 MMOL/L (3.5-5.1)
[2022-03-26] MEDS: carvediloL 25 MG TABLET PO SCH ×2 (08:24→21:04)
[2022-03-26] MEDS: SUCRALFATE 1 GM/10 ML UDCUP PO SCH ×4 (08:24→21:04)
[2022-03-26] MEDS: PANTOPRAZOLE 40 MG TABLET PO SCH (08:24)
[2022-03-26] MEDS: lisinopriL 10 MG TABLET PO SCH (08:24)
[2022-03-26] MEDS: oxyCODONE/ACETAMINOPHEN 5-325 MG TABLET PO PRN ×2 (10:11→21:03)
[2022-03-26 15:25] LABS: Mucus,Urine Occasional /LPF (Occasional); RBC,Urine 2 /HPF (0-4); Squamous Epithelial Cell,Urine Occasional /HPF (0-10)
[2022-03-26 15:28] LABS: Bilirubin,Urine Negative (Negative); Blood, Urine Trace mg/dL (Negative); Glucose,Urine (UA) Negative (Negative); Ketones,Urine Negative (Negative); Nitrite,Urine Negative (Negative); Protein,Urine Trace mg/dL (Negative); Urine Appearance Clear (Clear); Urine Color Yellow (Yellow); Urine Specific Gravity 1.015 (1.001-1.035); Urine Urobilinogen 0.2 eU/dL (<2.0)
[2022-03-26] MEDS: FAT EMULSION 20% 250 ML IV SCH (16:05)
[2022-03-26] MEDS: MULTIVITAMIN INJ 10 ML in AMINO ACIDS/DEXT/LYTES 5-20% 2,000 ML IV SCH (17:40)
[2022-03-26] MEDS: INSULIN LISPRO 100 UNIT/ML SUBCUT SCH (17:46)
[2022-03-26] MEDS: ONDANSETRON 4 MG/2 ML VIAL IV PRN (21:11)
[2022-03-27] MEDS: INSULIN LISPRO 100 UNIT/ML SUBCUT SCH ×4 (00:15→17:36)
[2022-03-27] MEDS: PIPERACILLIN/TAZOBACTAM 3,375 MG in SODIUM CHLORIDE 0.9% 100 ML IV SCH ×3 (00:16→16:33)
[2022-03-27] MEDS: oxyCODONE/ACETAMINOPHEN 5-325 MG TABLET PO PRN ×2 (01:09→16:40)
[2022-03-27] MEDS: ONDANSETRON 4 MG/2 ML VIAL IV PRN (01:09)
[2022-03-27] MEDS: VANCOMYCIN 125 MG CAPSULE PO SCH ×4 (03:30→20:55)
[2022-03-27 05:47] LABS: Basophils % 0.2 % (0.0-0.8); Eosinophils # 0.1 10*3/uL (0.0-0.87); Eosinophils % 0.5 % (0.00-10.9); Hematocrit 33.8 VOL% (35.7-47.0); Hemoglobin 10.3 GM/DL (12.0-16.0); Immature Granulocytes % 0.5 %; Immature Granulocytes Absolute 0.08 #; Lymphocytes # 0.9 10*3/uL (1.4-4.0); Lymphocytes % 5.1 % (21.3-54.2); Mean Corpuscular HGB Conc 30.5 GM/DL (32-36); Mean Corpuscular Volume 74.9 FL (87-102); Monocytes # 0.9 10*3/uL (0.11-0.8); Monocytes % 5.1 % (1.7-12.7); Neutrophils % 88.6 % (38.7-73.9); Platelet Count 321 T/CUMM (130-400); Red Blood Count 4.51 MC/CUMM (3.8-5.5)
[2022-03-27 06:02] LABS: Calcium 8.1 MG/DL (8.5-10.1); Osmolality,Calculated 282.3 MOS/KG (273-304); Potassium 3.1 MMOL/L (3.5-5.1)
[2022-03-27] MEDS: POTASSIUM CHLORIDE 20 MEQ TABLET PO PRN ×4 (08:00→14:16)
[2022-03-27] MEDS: PANTOPRAZOLE 40 MG TABLET PO SCH (08:00)
[2022-03-27] MEDS: SUCRALFATE 1 GM/10 ML UDCUP PO SCH ×4 (08:01→20:55)
[2022-03-27] MEDS: carvediloL 25 MG TABLET PO SCH ×2 (08:01→20:55)
[2022-03-27] MEDS: lisinopriL 10 MG TABLET PO SCH (08:01)
[2022-03-27] MEDS: VANCOMYCIN INJ 1,000 MG in SODIUM CHLORIDE 0.9% 250 ML IV SCH ×2 (12:09→23:14)
[2022-03-27] MEDS: FAT EMULSION 20% 250 ML IV SCH (14:18)
[2022-03-27] MEDS: MULTIVITAMIN INJ 10 ML in AMINO ACIDS/DEXT/LYTES 5-20% 2,000 ML IV SCH (16:34)
[2022-03-28] MEDS: PIPERACILLIN/TAZOBACTAM 3,375 MG in SODIUM CHLORIDE 0.9% 100 ML IV SCH ×3 (00:50→16:13)
[2022-03-28] MEDS: INSULIN LISPRO 100 UNIT/ML SUBCUT SCH ×4 (01:30→18:23)
[2022-03-28] MEDS: oxyCODONE/ACETAMINOPHEN 5-325 MG TABLET PO PRN ×3 (01:49→21:16)
[2022-03-28] MEDS: VANCOMYCIN 125 MG CAPSULE PO SCH ×4 (03:34→21:16)
[2022-03-28] MEDS: ACETAMINOPHEN 325 MG TABLET PO PRN (03:51)
[2022-03-28 06:10] LABS: Basophils % 0.3 % (0.0-0.8); Eosinophils # 0.1 10*3/uL (0.0-0.87); Eosinophils % 0.4 % (0.00-10.9); Hematocrit 34.4 VOL% (35.7-47.0); Hemoglobin 10.6 GM/DL (12.0-16.0); Immature Granulocytes % 0.7 %; Immature Granulocytes Absolute 0.11 #; Lymphocytes # 0.7 10*3/uL (1.4-4.0); Lymphocytes % 4.6 % (21.3-54.2); Mean Corpuscular HGB Conc 30.8 GM/DL (32-36); Mean Corpuscular Volume 75.3 FL (87-102); Monocytes # 0.7 10*3/uL (0.11-0.8); Monocytes % 4.6 % (1.7-12.7); Neutrophils % 89.4 % (38.7-73.9); Platelet Count 265 T/CUMM (130-400); Red Blood Count 4.57 MC/CUMM (3.8-5.5)
[2022-03-28 06:34] LABS: Lymphocytes 4 % (20-55); Platelet Estimate Normal; Total Cells Counted 100
[2022-03-28 06:35] LABS: Hypochromia 1+; Microcytosis 1+; Target Cells Few
[2022-03-28 06:40] LABS: Calcium 8.6 MG/DL (8.5-10.1)
[2022-03-28] MEDS: SUCRALFATE 1 GM/10 ML UDCUP PO SCH ×4 (08:41→21:15)
[2022-03-28] MEDS: LACTATED RINGERS 1,000 ML IV SCH ×2 (08:42→19:15)
[2022-03-28] MEDS: carvediloL 25 MG TABLET PO SCH ×2 (08:42→21:16)
[2022-03-28] MEDS: PANTOPRAZOLE 40 MG TABLET PO SCH (08:43)
[2022-03-28] MEDS: lisinopriL 10 MG TABLET PO SCH (08:43)
[2022-03-28] MEDS: VANCOMYCIN INJ 1,000 MG in SODIUM CHLORIDE 0.9% 250 ML IV SCH (13:56)
[2022-03-28] MEDS: FAT EMULSION 20% 250 ML IV SCH (16:11)
[2022-03-28] MEDS: MULTIVITAMIN INJ 10 ML in AMINO ACIDS/DEXT/LYTES 5-20% 2,000 ML IV SCH (17:25)
[2022-03-29] MEDS: VANCOMYCIN INJ 1,000 MG in SODIUM CHLORIDE 0.9% 250 ML IV SCH (00:33)
[2022-03-29] MEDS: PIPERACILLIN/TAZOBACTAM 3,375 MG in SODIUM CHLORIDE 0.9% 100 ML IV SCH ×2 (01:05→09:03)
[2022-03-29] MEDS: INSULIN LISPRO 100 UNIT/ML SUBCUT SCH ×4 (01:06→17:21)
[2022-03-29] MEDS: VANCOMYCIN 125 MG CAPSULE PO SCH ×2 (02:20→09:02)
[2022-03-29 03:51] LABS: Basophils % 0.3 % (0.0-0.8); Eosinophils # 0.1 10*3/uL (0.0-0.87); Eosinophils % 0.8 % (0.00-10.9); Hematocrit 34.3 VOL% (35.7-47.0); Hemoglobin 10.4 GM/DL (12.0-16.0); Immature Granulocytes % 0.4 %; Immature Granulocytes Absolute 0.07 #; Lymphocytes # 0.9 10*3/uL (1.4-4.0); Lymphocytes % 5.6 % (21.3-54.2); Mean Corpuscular HGB Conc 30.3 GM/DL (32-36); Mean Corpuscular Volume 76.1 FL (87-102); Monocytes % 6.1 % (1.7-12.7); Neutrophils % 86.8 % (38.7-73.9); Platelet Count 179 T/CUMM (130-400); Red Blood Count 4.51 MC/CUMM (3.8-5.5); White Blood Count 15.8 T/CUMM (4-12)
[2022-03-29 04:09] LABS: Potassium 3.9 MMOL/L (3.5-5.1)
[2022-03-29 04:32] LABS: Platelet Estimate Adequate
[2022-03-29] MEDS: SUCRALFATE 1 GM/10 ML UDCUP PO SCH ×4 (07:02→21:48)
[2022-03-29] MEDS: PANTOPRAZOLE 40 MG TABLET PO SCH (09:02)
[2022-03-29] MEDS: carvediloL 25 MG TABLET PO SCH ×2 (09:03→21:48)
[2022-03-29] MEDS: lisinopriL 10 MG TABLET PO SCH (09:03)
[2022-03-29] MEDS: oxyCODONE/ACETAMINOPHEN 5-325 MG TABLET PO PRN ×3 (09:07→21:48)
[2022-03-29] MEDS: cefTRIAXone 1,000 MG in SODIUM CHLORIDE 0.9% 100 ML IV SCH (12:07)
[2022-03-29] MEDS: FAT EMULSION 20% 250 ML IV SCH (14:50)
[2022-03-29] MEDS: MULTIVITAMIN INJ 10 ML in AMINO ACIDS/DEXT/LYTES 5-20% 2,000 ML IV SCH (16:17)
[2022-03-30] MEDS: INSULIN LISPRO 100 UNIT/ML SUBCUT SCH ×4 (00:10→18:39)
[2022-03-30] MEDS: oxyCODONE/ACETAMINOPHEN 5-325 MG TABLET PO PRN ×3 (01:04→17:40)
[2022-03-30 05:59] LABS: Basophils % 0.2 % (0.0-0.8); Eosinophils # 0.1 10*3/uL (0.0-0.87); Eosinophils % 0.8 % (0.00-10.9); Hematocrit 33.3 VOL% (35.7-47.0); Hemoglobin 10.1 GM/DL (12.0-16.0); Immature Granulocytes % 0.5 %; Immature Granulocytes Absolute 0.07 #; Lymphocytes # 0.7 10*3/uL (1.4-4.0); Lymphocytes % 5.1 % (21.3-54.2); Mean Corpuscular HGB Conc 30.3 GM/DL (32-36); Mean Corpuscular Volume 75.9 FL (87-102); Monocytes # 0.8 10*3/uL (0.11-0.8); Monocytes % 5.8 % (1.7-12.7); Neutrophils % 87.6 % (38.7-73.9); Platelet Count 259 T/CUMM (130-400); Red Blood Count 4.39 MC/CUMM (3.8-5.5); White Blood Count 14.2 T/CUMM (4-12)
[2022-03-30 06:20] LABS: Hypochromia Slight; Lymphocytes 6 % (20-55); Microcytosis Slight; Platelet Estimate Adequate; Target Cells Slight; Total Cells Counted 100
[2022-03-30 06:21] LABS: Calcium 8.5 MG/DL (8.5-10.1); Osmolality,Calculated 287.8 MOS/KG (273-304); Potassium 3.5 MMOL/L (3.5-5.1)
[2022-03-30] MEDS: SUCRALFATE 1 GM/10 ML UDCUP PO SCH ×4 (06:45→22:27)
[2022-03-30] MEDS: lisinopriL 10 MG TABLET PO SCH (10:05)
[2022-03-30] MEDS: PANTOPRAZOLE 40 MG TABLET PO SCH (10:05)
[2022-03-30] MEDS: cefTRIAXone 1,000 MG in SODIUM CHLORIDE 0.9% 100 ML IV SCH (10:05)
[2022-03-30] MEDS: carvediloL 25 MG TABLET PO SCH ×2 (10:05→22:27)
[2022-03-30] MEDS: FAT EMULSION 20% 250 ML IV SCH (13:48)
[2022-03-30] MEDS: BISACODYL 5 MG TABLET PO SCH (13:48)
[2022-03-30] MEDS: MULTIVITAMIN INJ 10 ML in AMINO ACIDS/DEXT/LYTES 5-20% 2,000 ML IV SCH (17:41)
[2022-03-30] MEDS: MORPHINE 2 MG/1 ML SYRINGE IV PRN (22:28)
[2022-03-30] MEDS: ONDANSETRON 4 MG/2 ML VIAL IV PRN (22:28)
[2022-03-31] MEDS: INSULIN LISPRO 100 UNIT/ML SUBCUT SCH ×4 (00:18→18:51)
[2022-03-31] MEDS: MORPHINE 2 MG/1 ML SYRINGE IV PRN ×2 (06:14→16:23)
[2022-03-31 06:15] LABS: Basophils % 0.3 % (0.0-0.8); Eosinophils # 0.2 10*3/uL (0.0-0.87); Eosinophils % 1.9 % (0.00-10.9); Hematocrit 30.2 VOL% (35.7-47.0); Hemoglobin 9.1 GM/DL (12.0-16.0); Immature Granulocytes % 0.5 %; Immature Granulocytes Absolute 0.06 #; Lymphocytes # 0.9 10*3/uL (1.4-4.0); Lymphocytes % 7.7 % (21.3-54.2); Mean Corpuscular HGB Conc 30.1 GM/DL (32-36); Mean Corpuscular Volume 75.3 FL (87-102); Monocytes % 8.6 % (1.7-12.7); Platelet Count 242 T/CUMM (130-400); Red Blood Count 4.01 MC/CUMM (3.8-5.5); White Blood Count 11.9 T/CUMM (4-12)
[2022-03-31] MEDS: ONDANSETRON 4 MG/2 ML VIAL IV PRN ×2 (06:17→16:23)
[2022-03-31 06:39] LABS: Hypochromia 1+; Microcytosis 1+; Target Cells Few
[2022-03-31 06:40] LABS: Ovalocytes Slight; Platelet Estimate Normal
[2022-03-31 08:08] LABS: % Iron Saturation 10.9 % (18-50); Ferritin 290.9 ng/mL (8-252)
[2022-03-31] MEDS: BISACODYL 5 MG TABLET PO SCH (08:42)
[2022-03-31] MEDS: carvediloL 25 MG TABLET PO SCH ×2 (09:22→21:05)
[2022-03-31] MEDS: PANTOPRAZOLE 40 MG TABLET PO SCH (09:22)
[2022-03-31] MEDS: lisinopriL 10 MG TABLET PO SCH (09:22)
[2022-03-31] MEDS: cefTRIAXone 1,000 MG in SODIUM CHLORIDE 0.9% 100 ML IV SCH (09:23)
[2022-03-31] MEDS: SUCRALFATE 1 GM/10 ML UDCUP PO SCH ×4 (10:36→21:05)
[2022-03-31] MEDS: MULTIVITAMIN INJ 10 ML in AMINO ACIDS/DEXT/LYTES 5-20% 2,000 ML IV SCH (16:30)
[2022-03-31] MEDS: FAT EMULSION 20% 250 ML IV SCH (16:30)
[2022-03-31] MEDS: oxyCODONE/ACETAMINOPHEN 5-325 MG TABLET PO PRN (19:23)
[2022-04-01] MEDS: INSULIN LISPRO 100 UNIT/ML SUBCUT SCH ×4 (00:35→19:18)
[2022-04-01] MEDS: MORPHINE 2 MG/1 ML SYRINGE IV PRN ×3 (03:30→20:24)
[2022-04-01 04:47] LABS: Basophils % 0.2 % (0.0-0.8); Eosinophils # 0.2 10*3/uL (0.0-0.87); Eosinophils % 1.7 % (0.00-10.9); Hematocrit 30.5 VOL% (35.7-47.0); Hemoglobin 9.3 GM/DL (12.0-16.0); Immature Granulocytes % 0.6 %; Immature Granulocytes Absolute 0.06 #; Lymphocytes # 0.9 10*3/uL (1.4-4.0); Lymphocytes % 9.2 % (21.3-54.2); Mean Corpuscular HGB Conc 30.5 GM/DL (32-36); Mean Corpuscular Volume 74.9 FL (87-102); Monocytes # 0.9 10*3/uL (0.11-0.8); Monocytes % 8.8 % (1.7-12.7); Neutrophils % 79.5 % (38.7-73.9); Platelet Count 234 T/CUMM (130-400); Red Blood Count 4.07 MC/CUMM (3.8-5.5); White Blood Count 9.9 T/CUMM (4-12)
[2022-04-01 04:59] LABS: Hypochromia 1+; Microcytosis 1+
[2022-04-01 05:00] LABS: Target Cells Few
[2022-04-01 05:01] LABS: Platelet Estimate Adequate
[2022-04-01 05:11] LABS: Albumin 1.6 G/DL (3.4-5.0); Bilirubin,Total 1.4 MG/DL (0.20-1.00); Calcium 8.5 MG/DL (8.5-10.1); Osmolality,Calculated 286.8 MOS/KG (273-304); Potassium 3.6 MMOL/L (3.5-5.1)
[2022-04-01] MEDS: SUCRALFATE 1 GM/10 ML UDCUP PO SCH ×5 (09:17→20:23)
[2022-04-01] MEDS: BISACODYL 5 MG TABLET PO SCH (09:22)
[2022-04-01] MEDS: carvediloL 25 MG TABLET PO SCH ×2 (09:22→20:23)
[2022-04-01] MEDS: oxyCODONE/ACETAMINOPHEN 5-325 MG TABLET PO PRN ×2 (09:23→22:17)
[2022-04-01] MEDS: PANTOPRAZOLE 40 MG TABLET PO SCH (09:23)
[2022-04-01] MEDS: cefTRIAXone 1,000 MG in SODIUM CHLORIDE 0.9% 100 ML IV SCH (09:26)
[2022-04-01] MEDS: lisinopriL 10 MG TABLET PO SCH (15:17)
[2022-04-01] MEDS: FAT EMULSION 20% 250 ML IV SCH (15:19)
[2022-04-01] MEDS: MULTIVITAMIN INJ 10 ML in AMINO ACIDS/DEXT/LYTES 5-20% 2,000 ML IV SCH (18:16)
[2022-04-02] MEDS: MORPHINE 2 MG/1 ML SYRINGE IV PRN ×3 (00:19→20:06)
[2022-04-02] MEDS: INSULIN LISPRO 100 UNIT/ML SUBCUT SCH ×4 (01:12→18:31)
[2022-04-02 05:52] LABS: Phosphorous 3.6 MG/DL (2.5-4.9)
[2022-04-02 06:11] LABS: Albumin 1.6 G/DL (3.4-5.0); Bilirubin,Total 1.5 MG/DL (0.20-1.00); Calcium 8.6 MG/DL (8.5-10.1); Osmolality,Calculated 290.6 MOS/KG (273-304); Potassium 3.7 MMOL/L (3.5-5.1); Total Protein 6.3 G/DL (6.4-8.2)
[2022-04-02] MEDS: lisinopriL 10 MG TABLET PO SCH (08:39)
[2022-04-02] MEDS: oxyCODONE/ACETAMINOPHEN 5-325 MG TABLET PO PRN ×2 (08:39→17:21)
[2022-04-02] MEDS: carvediloL 25 MG TABLET PO SCH ×2 (08:39→20:02)
[2022-04-02] MEDS: BISACODYL 5 MG TABLET PO SCH (08:39)
[2022-04-02] MEDS: PANTOPRAZOLE 40 MG TABLET PO SCH (08:40)
[2022-04-02] MEDS: cefTRIAXone 1,000 MG in SODIUM CHLORIDE 0.9% 100 ML IV SCH (08:55)
[2022-04-02] MEDS: SUCRALFATE 1 GM/10 ML UDCUP PO SCH ×3 (11:40→20:16)
[2022-04-02] MEDS: FAT EMULSION 20% 250 ML IV SCH (14:26)
[2022-04-02] MEDS: MULTIVITAMIN INJ 10 ML in AMINO ACIDS/DEXT/LYTES 5-20% 2,000 ML IV SCH (17:20)
[2022-04-03] MEDS: MORPHINE 2 MG/1 ML SYRINGE IV PRN ×4 (01:00→20:57)
[2022-04-03] MEDS: INSULIN LISPRO 100 UNIT/ML SUBCUT SCH ×4 (01:03→19:17)
[2022-04-03] MEDS: SUCRALFATE 1 GM/10 ML UDCUP PO SCH ×4 (08:38→20:59)
[2022-04-03] MEDS: oxyCODONE/ACETAMINOPHEN 5-325 MG TABLET PO PRN ×2 (08:38→17:48)
[2022-04-03] MEDS: PANTOPRAZOLE 40 MG TABLET PO SCH (08:39)
[2022-04-03] MEDS: BISACODYL 5 MG TABLET PO SCH (08:39)
[2022-04-03] MEDS: carvediloL 25 MG TABLET PO SCH ×2 (08:39→20:58)
[2022-04-03] MEDS: lisinopriL 10 MG TABLET PO SCH (08:40)
[2022-04-03] MEDS: cefTRIAXone 1,000 MG in SODIUM CHLORIDE 0.9% 100 ML IV SCH (08:44)
[2022-04-03] MEDS: FAT EMULSION 20% 250 ML IV SCH (15:59)
[2022-04-03] MEDS: MULTIVITAMIN INJ 10 ML in AMINO ACIDS/DEXT/LYTES 5-20% 2,000 ML IV SCH (17:03)
[2022-04-04] MEDS: oxyCODONE/ACETAMINOPHEN 5-325 MG TABLET PO PRN ×2 (00:03→18:01)
[2022-04-04] MEDS: INSULIN LISPRO 100 UNIT/ML SUBCUT SCH ×4 (00:04→18:03)
[2022-04-04] MEDS: MORPHINE 2 MG/1 ML SYRINGE IV PRN ×4 (02:07→22:13)
[2022-04-04 06:12] LABS: Basophils % 0.3 % (0.0-0.8); Eosinophils # 0.1 10*3/uL (0.0-0.87); Eosinophils % 1.1 % (0.00-10.9); Hematocrit 30.1 VOL% (35.7-47.0); Immature Granulocytes % 0.5 %; Immature Granulocytes Absolute 0.06 #; Lymphocytes % 8.7 % (21.3-54.2); Mean Corpuscular HGB Conc 29.9 GM/DL (32-36); Mean Corpuscular Volume 75.8 FL (87-102); Monocytes # 0.8 10*3/uL (0.11-0.8); Neutrophils % 82.4 % (38.7-73.9); Platelet Count 276 T/CUMM (130-400); Red Blood Count 3.97 MC/CUMM (3.8-5.5); White Blood Count 11.3 T/CUMM (4-12)
[2022-04-04 06:32] LABS: Albumin 1.5 G/DL (3.4-5.0); Bilirubin,Total 1.8 MG/DL (0.20-1.00); Calcium 8.1 MG/DL (8.5-10.1); Potassium 3.8 MMOL/L (3.5-5.1); Total Protein 6.8 G/DL (6.4-8.2)
[2022-04-04] MEDS: SUCRALFATE 1 GM/10 ML UDCUP PO SCH ×4 (07:30→22:12)
[2022-04-04] MEDS: cefTRIAXone 1,000 MG in SODIUM CHLORIDE 0.9% 100 ML IV SCH (09:40)
[2022-04-04] MEDS: FAT EMULSION 20% 250 ML IV SCH (15:25)
[2022-04-04] MEDS: lisinopriL 10 MG TABLET PO SCH (15:30)
[2022-04-04] MEDS: carvediloL 25 MG TABLET PO SCH ×2 (15:30→22:12)
[2022-04-04] MEDS: PANTOPRAZOLE 40 MG TABLET PO SCH (15:31)
[2022-04-04] MEDS: BISACODYL 5 MG TABLET PO SCH (15:31)
[2022-04-04] MEDS: MULTIVITAMIN INJ 10 ML in AMINO ACIDS/DEXT/LYTES 5-20% 2,000 ML IV SCH (18:03)
[2022-04-05] MEDS: INSULIN LISPRO 100 UNIT/ML SUBCUT SCH ×4 (00:01→17:39)
[2022-04-05] MEDS: ONDANSETRON 4 MG/2 ML VIAL IV PRN (02:56)
[2022-04-05] MEDS: MORPHINE 2 MG/1 ML SYRINGE IV PRN ×3 (03:18→22:52)
[2022-04-05 05:53] LABS: Basophils % 0.3 % (0.0-0.8); Eosinophils # 0.1 10*3/uL (0.0-0.87); Eosinophils % 0.9 % (0.00-10.9); Hematocrit 30.4 VOL% (35.7-47.0); Immature Granulocytes % 0.6 %; Immature Granulocytes Absolute 0.07 #; Lymphocytes # 0.9 10*3/uL (1.4-4.0); Lymphocytes % 7.1 % (21.3-54.2); Mean Corpuscular HGB Conc 29.6 GM/DL (32-36); Mean Corpuscular Volume 75.8 FL (87-102); Monocytes # 0.7 10*3/uL (0.11-0.8); Monocytes % 5.4 % (1.7-12.7); Neutrophils % 85.7 % (38.7-73.9); Platelet Count 303 T/CUMM (130-400); Red Blood Count 4.01 MC/CUMM (3.8-5.5); White Blood Count 12.7 T/CUMM (4-12)
[2022-04-05 06:00] LABS: INR 1.1; PT Patient Result 11.7 SECS (10.1-12.1)
[2022-04-05] MEDS ORDERED: MORPHINE 2 MG/1 ML SYRINGE IV ONE (06:30)
[2022-04-05 06:32] LABS: Albumin 1.6 G/DL (3.4-5.0); Bilirubin,Total 2.1 MG/DL (0.20-1.00); Potassium 3.6 MMOL/L (3.5-5.1); Total Protein 7.3 G/DL (6.4-8.2)
[2022-04-05] MEDS: SUCRALFATE 1 GM/10 ML UDCUP PO SCH ×4 (07:43→20:39)
[2022-04-05] MEDS ORDERED: INDOMETHACIN SUPP 50 MG SUPP RECTAL ONE (08:00)
[2022-04-05] MEDS: cefTRIAXone 1,000 MG in SODIUM CHLORIDE 0.9% 100 ML IV SCH (09:24)
[2022-04-05] MEDS: LACTATED RINGERS 1,000 ML IV SCH (12:37)
[2022-04-05] MEDS ORDERED: SUCCINYLCHOLINE 200 MG/10 ML VIAL ONE (13:16)
[2022-04-05] MEDS ORDERED: ONDANSETRON 4 MG/2 ML VIAL ONE (13:16)
[2022-04-05] MEDS ORDERED: SEVOFLURANE 1 UNIT/15 MINUTE INH ONE (13:16)
[2022-04-05] MEDS ORDERED: fentaNYL 100 MCG/2 ML VIAL ONE (13:16)
[2022-04-05] MEDS ORDERED: propofoL 200 MG/20 ML VIAL IV ONE (13:16)
[2022-04-05] MEDS ORDERED: LIDOCAINE 2% 5 ML VIAL ONE (13:16)
[2022-04-05] MEDS ORDERED: ROCURONIUM 50 MG/5 ML VIAL IV ONE (13:16)
[2022-04-05] MEDS ORDERED: SUGAMMADEX 200 MG/2 ML VIAL IV ONE (13:52)
[2022-04-05] MEDS: BISACODYL 5 MG TABLET PO SCH (14:40)
[2022-04-05] MEDS: FAT EMULSION 20% 250 ML IV SCH (15:01)
[2022-04-05] MEDS: PANTOPRAZOLE 40 MG TABLET PO SCH (15:02)
[2022-04-05] MEDS: carvediloL 25 MG TABLET PO SCH ×2 (15:02→20:39)
[2022-04-05] MEDS: lisinopriL 10 MG TABLET PO SCH (15:02)
[2022-04-05] MEDS: MULTIVITAMIN INJ 10 ML in AMINO ACIDS/DEXT/LYTES 5-20% 2,000 ML IV SCH (17:01)
[2022-04-05] MEDS: oxyCODONE/ACETAMINOPHEN 5-325 MG TABLET PO PRN (20:39)
[2022-04-06] MEDS: INSULIN LISPRO 100 UNIT/ML SUBCUT SCH ×5 (01:07→23:29)
[2022-04-06] MEDS: oxyCODONE/ACETAMINOPHEN 5-325 MG TABLET PO PRN ×2 (01:16→21:22)
[2022-04-06] MEDS: ONDANSETRON 4 MG/2 ML VIAL IV PRN ×2 (02:39→08:33)
[2022-04-06] MEDS ORDERED: KETOROLAC 15 MG/1 ML VIAL IV ONE (06:00)
[2022-04-06] MEDS: lisinopriL 10 MG TABLET PO SCH (08:28)
[2022-04-06] MEDS: BISACODYL 5 MG TABLET PO SCH (08:28)
[2022-04-06] MEDS: LACTATED RINGERS 1,000 ML IV SCH (08:28)
[2022-04-06] MEDS: PANTOPRAZOLE 40 MG TABLET PO SCH (08:28)
[2022-04-06] MEDS: SUCRALFATE 1 GM/10 ML UDCUP PO SCH ×4 (08:28→21:21)
[2022-04-06] MEDS: carvediloL 25 MG TABLET PO SCH ×2 (08:28→21:22)
[2022-04-06 09:15] LABS: Basophils % 0.2 % (0.0-0.8); Eosinophils # 0.2 10*3/uL (0.0-0.87); Eosinophils % 1.4 % (0.00-10.9); Hematocrit 29.2 VOL% (35.7-47.0); Hemoglobin 8.9 GM/DL (12.0-16.0); Immature Granulocytes % 0.7 %; Immature Granulocytes Absolute 0.08 #; Lymphocytes # 0.8 10*3/uL (1.4-4.0); Lymphocytes % 6.8 % (21.3-54.2); Mean Corpuscular HGB Conc 30.5 GM/DL (32-36); Mean Corpuscular Volume 74.3 FL (87-102); Monocytes # 0.7 10*3/uL (0.11-0.8); Monocytes % 6.1 % (1.7-12.7); Neutrophils % 84.8 % (38.7-73.9); Platelet Count 301 T/CUMM (130-400); Red Blood Count 3.93 MC/CUMM (3.8-5.5); White Blood Count 11.8 T/CUMM (4-12)
[2022-04-06 09:34] LABS: Hypochromia Slight; Lymphocytes 8 % (20-55); Microcytosis Slight; Platelet Estimate Adequate; Total Cells Counted 100
[2022-04-06 09:38] LABS: Calcium 8.6 MG/DL (8.5-10.1); Osmolality,Calculated 291.8 MOS/KG (273-304); Potassium 4.1 MMOL/L (3.5-5.1)
[2022-04-06] MEDS: MORPHINE 2 MG/1 ML SYRINGE IV PRN ×2 (10:35→18:45)
[2022-04-06] MEDS ORDERED: FAMOTIDINE 20 MG/2 ML VIAL IV ONE (13:07)
[2022-04-06] MEDS ORDERED: LACTATED RINGERS 250 ML IV ONE (13:30)
[2022-04-06] MEDS ORDERED: LEVOFLOXACIN INJ 500 MG/100 ML PREMIX IV ONE (14:34)
[2022-04-06] MEDS ORDERED: LIDOCAINE 2% 5 ML VIAL ONE (15:14)
[2022-04-06] MEDS ORDERED: SEVOFLURANE 1 UNIT/15 MINUTE INH ONE (15:14)
[2022-04-06] MEDS ORDERED: propofoL 200 MG/20 ML VIAL IV ONE (15:14)
[2022-04-06] MEDS ORDERED: PHENYLEPHRINE 1 MG/10 ML SYRINGE IV ONE (15:14)
[2022-04-06] MEDS ORDERED: MIDAZOLAM 2 MG/2 ML VIAL ONE (15:15)
[2022-04-06] MEDS ORDERED: fentaNYL 100 MCG/2 ML VIAL ONE (15:15)
[2022-04-06] MEDS ORDERED: LACTATED RINGERS 1,000 ML IV ONE (15:15)
[2022-04-06] MEDS ORDERED: ONDANSETRON 4 MG/2 ML VIAL ONE (15:15)
[2022-04-06] MEDS ORDERED: HYDROmorphone 1 MG/1 ML SYRINGE IV PRN (15:22)
[2022-04-06] MEDS ORDERED: HYDROmorphone 1 MG/1 ML SYRINGE ONE (15:22)
[2022-04-06] MEDS ORDERED: ONDANSETRON 4 MG/2 ML VIAL IV PRN (15:22)
[2022-04-06] MEDS ORDERED: LACTATED RINGERS 1,000 ML IV SCH (16:00)
[2022-04-06] MEDS: FAT EMULSION 20% 250 ML IV SCH (16:08)
[2022-04-06] MEDS: MULTIVITAMIN INJ 10 ML in AMINO ACIDS/DEXT/LYTES 5-20% 2,000 ML IV SCH (16:09)
[2022-04-07] MEDS: oxyCODONE/ACETAMINOPHEN 5-325 MG TABLET PO PRN (02:16)
[2022-04-07 05:08] LABS: Basophils % 0.3 % (0.0-0.8); Eosinophils # 0.2 10*3/uL (0.0-0.87); Eosinophils % 1.4 % (0.00-10.9); Hematocrit 28.9 VOL% (35.7-47.0); Immature Granulocytes % 0.7 %; Lymphocytes % 6.9 % (21.3-54.2); Mean Corpuscular HGB Conc 31.1 GM/DL (32-36); Mean Corpuscular Volume 75.5 FL (87-102); NRBC # 0.02 10*3/uL; Neutrophils % 83.7 % (38.7-73.9); Platelet Count 328 T/CUMM (130-400); Red Blood Count 3.83 MC/CUMM (3.8-5.5); White Blood Count 13.8 T/CUMM (4-12)
[2022-04-07] MEDS: INSULIN LISPRO 100 UNIT/ML SUBCUT SCH ×3 (05:16→17:43)
[2022-04-07 05:25] LABS: Albumin 1.5 G/DL (3.4-5.0); Bilirubin,Total 1.8 MG/DL (0.20-1.00); Calcium 8.8 MG/DL (8.5-10.1); Osmolality,Calculated 282.4 MOS/KG (273-304); Potassium 4.2 MMOL/L (3.5-5.1); Total Protein 7.1 G/DL (6.4-8.2)
[2022-04-07 05:32] LABS: Hypochromia 1+; Target Cells Few
[2022-04-07 05:33] LABS: Anisocytosis 1+; Platelet Estimate Normal
[2022-04-07] MEDS: BISACODYL 5 MG TABLET PO SCH (08:59)
[2022-04-07] MEDS: carvediloL 25 MG TABLET PO SCH ×2 (08:59→20:36)
[2022-04-07] MEDS: MORPHINE 2 MG/1 ML SYRINGE IV PRN ×2 (09:00→22:29)
[2022-04-07] MEDS: lisinopriL 10 MG TABLET PO SCH (09:00)
[2022-04-07] MEDS: SUCRALFATE 1 GM/10 ML UDCUP PO SCH ×4 (09:00→20:36)
[2022-04-07] MEDS: PANTOPRAZOLE 40 MG TABLET PO SCH (09:00)
[2022-04-07] MEDS ORDERED: MORPHINE 2 MG/1 ML SYRINGE IV ONE (09:05)
[2022-04-07] MEDS: FAT EMULSION 20% 250 ML IV SCH (14:27)
[2022-04-07] MEDS: MULTIVITAMIN INJ 10 ML in AMINO ACIDS/DEXT/LYTES 5-20% 2,000 ML IV SCH (16:30)
[2022-04-07] MEDS: ESCITALOPRAM 10 MG TABLET PO SCH (20:36)
[2022-04-08] MEDS: INSULIN LISPRO 100 UNIT/ML SUBCUT SCH ×5 (00:52→23:40)
[2022-04-08] MEDS: ACETAMINOPHEN 325 MG TABLET PO PRN ×2 (04:56→20:53)
[2022-04-08 05:22] LABS: Basophils # 0.1 10*3/uL (0.0-0.2); Basophils % 0.4 % (0.0-0.8); Eosinophils # 0.2 10*3/uL (0.0-0.87); Eosinophils % 1.6 % (0.00-10.9); Hematocrit 28.9 VOL% (35.7-47.0); Hemoglobin 8.9 GM/DL (12.0-16.0); Immature Granulocytes % 0.9 %; Immature Granulocytes Absolute 0.12 #; Lymphocytes # 1.1 10*3/uL (1.4-4.0); Lymphocytes % 7.6 % (21.3-54.2); Mean Corpuscular HGB Conc 30.8 GM/DL (32-36); Mean Corpuscular Volume 74.9 FL (87-102); Monocytes % 6.9 % (1.7-12.7); NRBC # 0.02 10*3/uL; Neutrophils % 82.6 % (38.7-73.9); Platelet Count 328 T/CUMM (130-400); Red Blood Count 3.86 MC/CUMM (3.8-5.5)
[2022-04-08 05:33] LABS: Albumin 1.3 G/DL (3.4-5.0); Bilirubin,Total 1.8 MG/DL (0.20-1.00); Calcium 8.4 MG/DL (8.5-10.1); Osmolality,Calculated 282.5 MOS/KG (273-304); Potassium 4.4 MMOL/L (3.5-5.1); Total Protein 7.3 G/DL (6.4-8.2)
[2022-04-08 05:53] LABS: Eosinophils 2 % (0-10); Hypochromia Slight; Lymphocytes 4 % (20-55); Microcytosis Slight; Platelet Estimate Adequate; Target Cells Slight; Total Cells Counted 100
[2022-04-08] MEDS: MORPHINE 2 MG/1 ML SYRINGE IV PRN ×2 (06:32→14:49)
[2022-04-08] MEDS: lisinopriL 10 MG TABLET PO SCH (08:59)
[2022-04-08] MEDS: carvediloL 25 MG TABLET PO SCH ×2 (08:59→20:53)
[2022-04-08] MEDS: BISACODYL 5 MG TABLET PO SCH (08:59)
[2022-04-08] MEDS: SUCRALFATE 1 GM/10 ML UDCUP PO SCH ×4 (08:59→20:53)
[2022-04-08] MEDS: PANTOPRAZOLE 40 MG TABLET PO SCH (08:59)
[2022-04-08] MEDS: FAT EMULSION 20% 250 ML IV SCH (15:36)
[2022-04-08] MEDS: MULTIVITAMIN INJ 10 ML in AMINO ACIDS/DEXT/LYTES 5-20% 2,000 ML IV SCH (16:40)
[2022-04-08] MEDS: ESCITALOPRAM 10 MG TABLET PO SCH (20:53)
[2022-04-09] MEDS: ONDANSETRON 4 MG/2 ML VIAL IV PRN ×2 (02:22→14:12)
[2022-04-09] MEDS: MORPHINE 2 MG/1 ML SYRINGE IV PRN ×2 (03:56→14:12)
[2022-04-09 05:43] LABS: Albumin 1.3 G/DL (3.4-5.0); Bilirubin,Total 1.8 MG/DL (0.20-1.00); Calcium 8.9 MG/DL (8.5-10.1); Osmolality,Calculated 284.7 MOS/KG (273-304); Potassium 4.5 MMOL/L (3.5-5.1); Total Protein 7.4 G/DL (6.4-8.2)
[2022-04-09] MEDS: INSULIN LISPRO 100 UNIT/ML SUBCUT SCH ×3 (05:48→17:34)
[2022-04-09] MEDS: BISACODYL 5 MG TABLET PO SCH (08:50)
[2022-04-09] MEDS: PANTOPRAZOLE 40 MG TABLET PO SCH (08:51)
[2022-04-09] MEDS: SUCRALFATE 1 GM/10 ML UDCUP PO SCH ×4 (08:51→22:21)
[2022-04-09 09:49] LABS: Basophils % 0.2 % (0.0-0.8); Eosinophils # 0.1 10*3/uL (0.0-0.87); Eosinophils % 0.9 % (0.00-10.9); Hematocrit 29.1 VOL% (35.7-47.0); Hemoglobin 8.8 GM/DL (12.0-16.0); Immature Granulocytes % 0.7 %; Lymphocytes # 0.9 10*3/uL (1.4-4.0); Lymphocytes % 6.2 % (21.3-54.2); Mean Corpuscular HGB Conc 30.2 GM/DL (32-36); Mean Corpuscular Volume 74.6 FL (87-102); Monocytes # 0.9 10*3/uL (0.11-0.8); Monocytes % 6.2 % (1.7-12.7); Neutrophils % 85.8 % (38.7-73.9); Platelet Count 338 T/CUMM (130-400); White Blood Count 13.8 T/CUMM (4-12)
[2022-04-09 10:22] LABS: Hypochromia 1+; Microcytosis 1+; Target Cells Few
[2022-04-09 10:23] LABS: Platelet Estimate Normal; Spherocytes Slight
[2022-04-09] MEDS: carvediloL 25 MG TABLET PO SCH ×2 (11:00→21:11)
[2022-04-09] MEDS: lisinopriL 10 MG TABLET PO SCH (12:34)
[2022-04-09] MEDS: FAT EMULSION 20% 250 ML IV SCH (14:13)
[2022-04-09] MEDS: MULTIVITAMIN INJ 10 ML in AMINO ACIDS/DEXT/LYTES 5-20% 2,000 ML IV SCH (18:03)
[2022-04-09] MEDS: ESCITALOPRAM 10 MG TABLET PO SCH (22:21)
[2022-04-10] MEDS: INSULIN LISPRO 100 UNIT/ML SUBCUT SCH ×4 (00:32→18:12)
[2022-04-10 05:15] LABS: Basophils % 0.2 % (0.0-0.8); Eosinophils # 0.1 10*3/uL (0.0-0.87); Eosinophils % 0.5 % (0.00-10.9); Hematocrit 29.4 VOL% (35.7-47.0); Immature Granulocytes Absolute 0.15 #; Lymphocytes % 6.9 % (21.3-54.2); Mean Corpuscular HGB Conc 30.6 GM/DL (32-36); Mean Corpuscular Volume 73.7 FL (87-102); Monocytes # 1.1 10*3/uL (0.11-0.8); Monocytes % 7.4 % (1.7-12.7); NRBC # 0.04 10*3/uL; Platelet Count 412 T/CUMM (130-400); Red Blood Count 3.99 MC/CUMM (3.8-5.5); White Blood Count 15.1 T/CUMM (4-12)
[2022-04-10 05:35] LABS: Albumin 1.6 G/DL (3.4-5.0); Calcium 8.9 MG/DL (8.5-10.1); Osmolality,Calculated 285.2 MOS/KG (273-304); Potassium 4.6 MMOL/L (3.5-5.1); Total Protein 7.9 G/DL (6.4-8.2)
[2022-04-10 05:51] LABS: Calcium 8.9 MG/DL (8.5-10.1); Osmolality,Calculated 284.4 MOS/KG (273-304); Potassium 4.6 MMOL/L (3.5-5.1)
[2022-04-10 06:02] LABS: Hypochromia 1+; Microcytosis 1+; Target Cells Few
[2022-04-10 06:03] LABS: Platelet Estimate Increased
[2022-04-10] MEDS: BISACODYL 5 MG TABLET PO SCH (10:14)
[2022-04-10] MEDS: carvediloL 25 MG TABLET PO SCH ×2 (10:14→20:20)
[2022-04-10] MEDS: PANTOPRAZOLE 40 MG TABLET PO SCH (10:14)
[2022-04-10] MEDS: SUCRALFATE 1 GM/10 ML UDCUP PO SCH ×4 (10:14→20:24)
[2022-04-10] MEDS: lisinopriL 10 MG TABLET PO SCH (10:15)
[2022-04-10] MEDS: ONDANSETRON 4 MG/2 ML VIAL IV PRN ×2 (10:15→18:51)
[2022-04-10] MEDS ORDERED: SODIUM CHLORIDE 0.9% 1,000 ML IV SCH (12:00)
[2022-04-10] MEDS: FAT EMULSION 20% 250 ML IV SCH (14:56)
[2022-04-10] MEDS: MULTIVITAMIN INJ 10 ML in AMINO ACIDS/DEXT/LYTES 5-20% 2,000 ML IV SCH (18:48)
[2022-04-10] MEDS: ESCITALOPRAM 10 MG TABLET PO SCH (20:24)
[2022-04-11] MEDS: INSULIN LISPRO 100 UNIT/ML SUBCUT SCH ×5 (00:14→23:36)
[2022-04-11] MEDS ORDERED: SODIUM PHOSPHATE ENEMA 133 ML BOTTLE RECTAL ONE (00:41)
[2022-04-11 05:09] LABS: Basophils % 0.1 % (0.0-0.8); Eosinophils # 0.1 10*3/uL (0.0-0.87); Eosinophils % 0.8 % (0.00-10.9); Hematocrit 28.7 VOL% (35.7-47.0); Hemoglobin 8.9 GM/DL (12.0-16.0); Immature Granulocytes % 0.7 %; Immature Granulocytes Absolute 0.09 #; Lymphocytes # 0.9 10*3/uL (1.4-4.0); Lymphocytes % 6.9 % (21.3-54.2); Mean Corpuscular Volume 74.9 FL (87-102); Monocytes # 1.1 10*3/uL (0.11-0.8); Monocytes % 8.4 % (1.7-12.7); Neutrophils % 83.1 % (38.7-73.9); Platelet Count 388 T/CUMM (130-400); Red Blood Count 3.83 MC/CUMM (3.8-5.5); White Blood Count 13.5 T/CUMM (4-12)
[2022-04-11 05:26] LABS: Calcium 8.6 MG/DL (8.5-10.1); Osmolality,Calculated 289.1 MOS/KG (273-304); Potassium 4.5 MMOL/L (3.5-5.1)
[2022-04-11 05:27] LABS: Albumin 1.5 G/DL (3.4-5.0); Calcium 8.4 MG/DL (8.5-10.1); Osmolality,Calculated 289.1 MOS/KG (273-304); Potassium 4.8 MMOL/L (3.5-5.1); Total Protein 7.1 G/DL (6.4-8.2)
[2022-04-11] MEDS: carvediloL 25 MG TABLET PO SCH ×2 (08:37→20:38)
[2022-04-11] MEDS: SUCRALFATE 1 GM/10 ML UDCUP PO SCH ×5 (08:37→20:39)
[2022-04-11] MEDS: BISACODYL 5 MG TABLET PO SCH (08:38)
[2022-04-11] MEDS: PANTOPRAZOLE 40 MG TABLET PO SCH (08:38)
[2022-04-11] MEDS: lisinopriL 10 MG TABLET PO SCH (12:48)
[2022-04-11] MEDS: FAT EMULSION 20% 250 ML IV SCH (15:05)
[2022-04-11] MEDS: MULTIVITAMIN INJ 10 ML in AMINO ACIDS/DEXT/LYTES 5-20% 2,000 ML IV SCH (17:19)
[2022-04-11] MEDS: ACETAMINOPHEN 325 MG TABLET PO PRN (18:51)
[2022-04-11] MEDS: ESCITALOPRAM 10 MG TABLET PO SCH (20:38)
[2022-04-12] MEDS: ONDANSETRON 4 MG/2 ML VIAL IV PRN ×2 (02:46→23:17)
[2022-04-12 04:27] LABS: Osmolality,Calculated 288.2 MOS/KG (273-304); Potassium 5.8 MMOL/L (3.5-5.1)
[2022-04-12 05:18] LABS: Basophils % 0.3 % (0.0-0.8); Eosinophils # 0.1 10*3/uL (0.0-0.87); Eosinophils % 0.8 % (0.00-10.9); Hematocrit 27.9 VOL% (35.7-47.0); Hemoglobin 8.7 GM/DL (12.0-16.0); Immature Granulocytes Absolute 0.12 #; Lymphocytes # 0.9 10*3/uL (1.4-4.0); Lymphocytes % 7.6 % (21.3-54.2); Mean Corpuscular HGB Conc 31.2 GM/DL (32-36); Mean Corpuscular Volume 74.6 FL (87-102); Monocytes # 0.9 10*3/uL (0.11-0.8); Monocytes % 7.7 % (1.7-12.7); Neutrophils % 82.6 % (38.7-73.9); Platelet Count 377 T/CUMM (130-400); Red Blood Count 3.74 MC/CUMM (3.8-5.5)
[2022-04-12] MEDS: INSULIN LISPRO 100 UNIT/ML SUBCUT SCH ×3 (05:20→17:15)
[2022-04-12] MEDS: PANTOPRAZOLE 40 MG TABLET PO SCH ×2 (09:17→21:31)
[2022-04-12] MEDS: carvediloL 25 MG TABLET PO SCH ×2 (09:17→21:30)
[2022-04-12] MEDS: BISACODYL 5 MG TABLET PO SCH (09:18)
[2022-04-12] MEDS: SODIUM ZIRCONIUM CYCLOSILICATE 10 GM PACK PO SCH (09:18)
[2022-04-12] MEDS: SUCRALFATE 1 GM/10 ML UDCUP PO SCH ×4 (09:24→21:29)
[2022-04-12] MEDS: lisinopriL 10 MG TABLET PO SCH (11:52)
[2022-04-12] MEDS: FAT EMULSION 20% 250 ML IV SCH (14:01)
[2022-04-12] MEDS ORDERED: LACTATED RINGERS 500 ML IV ONE (14:09)
[2022-04-12] MEDS: LACTATED RINGERS 1,000 ML IV SCH (15:16)
[2022-04-12] MEDS: DEXTROSE IV SCH (17:11)
[2022-04-12] MEDS: AMINO ACIDS IV SCH (17:11)
[2022-04-12] MEDS: MULTIVITAMIN IV SCH (17:11)
[2022-04-12] MEDS: ESCITALOPRAM 10 MG TABLET PO SCH (21:31)
[2022-04-13] MEDS: INSULIN LISPRO 100 UNIT/ML SUBCUT SCH ×5 (01:25→23:43)
[2022-04-13] MEDS: MORPHINE 2 MG/1 ML SYRINGE IV PRN (01:41)
[2022-04-13 05:37] LABS: Basophils % 0.2 % (0.0-0.8); Eosinophils # 0.1 10*3/uL (0.0-0.87); Eosinophils % 0.9 % (0.00-10.9); Hematocrit 25.9 VOL% (35.7-47.0); Hemoglobin 7.8 GM/DL (12.0-16.0); Immature Granulocytes % 1.8 %; Immature Granulocytes Absolute 0.24 #; Lymphocytes # 1.1 10*3/uL (1.4-4.0); Lymphocytes % 8.1 % (21.3-54.2); Mean Corpuscular HGB Conc 30.1 GM/DL (32-36); Mean Corpuscular Volume 75.3 FL (87-102); Monocytes # 1.1 10*3/uL (0.11-0.8); Monocytes % 8.6 % (1.7-12.7); NRBC # 0.02 10*3/uL; Neutrophils % 80.4 % (38.7-73.9); Platelet Count 419 T/CUMM (130-400); Red Blood Count 3.44 MC/CUMM (3.8-5.5); Red Cell Distribution Width 26.2 % (9.3-17.3); White Blood Count 13.2 T/CUMM (4-12)
[2022-04-13 06:00] LABS: Anisocytosis 1+; Hypochromia 1+; Microcytosis 1+; Target Cells Few
[2022-04-13 06:01] LABS: Platelet Estimate Increased; Polychromasia Slight
[2022-04-13 06:12] LABS: Osmolality,Calculated 289.7 MOS/KG (273-304); Potassium 4.9 MMOL/L (3.5-5.1)
[2022-04-13 06:18] LABS: Phosphorous 4.6 MG/DL (2.5-4.9)
[2022-04-13] MEDS: LACTATED RINGERS 1,000 ML IV SCH (06:25)
[2022-04-13] MEDS: SUCRALFATE 1 GM/10 ML UDCUP PO SCH ×4 (09:23→20:46)
[2022-04-13] MEDS: BISACODYL 5 MG TABLET PO SCH (09:24)
[2022-04-13] MEDS: carvediloL 25 MG TABLET PO SCH (09:24)
[2022-04-13] MEDS: SODIUM ZIRCONIUM CYCLOSILICATE 10 GM PACK PO SCH (09:24)
[2022-04-13] MEDS: lisinopriL 10 MG TABLET PO SCH (09:24)
[2022-04-13] MEDS: PANTOPRAZOLE 40 MG TABLET PO SCH ×2 (09:24→20:45)
[2022-04-13] MEDS: ONDANSETRON 4 MG/2 ML VIAL IV PRN ×2 (09:42→20:54)
[2022-04-13] MEDS: FAT EMULSION 20% 250 ML IV SCH (14:30)
[2022-04-13] MEDS: MULTIVITAMIN IV SCH (17:58)
[2022-04-13] MEDS: AMINO ACIDS IV SCH (17:58)
[2022-04-13] MEDS: DEXTROSE IV SCH (17:58)
[2022-04-13] MEDS: ESCITALOPRAM 10 MG TABLET PO SCH (20:45)
[2022-04-14] MEDS: LACTATED RINGERS 1,000 ML IV SCH ×2 (00:44→17:58)
[2022-04-14] MEDS: INSULIN LISPRO 100 UNIT/ML SUBCUT SCH ×3 (06:20→18:20)
[2022-04-14] MEDS: SUCRALFATE 1 GM/10 ML UDCUP PO SCH ×4 (09:16→21:39)
[2022-04-14] MEDS: BISACODYL 5 MG TABLET PO SCH (09:17)
[2022-04-14] MEDS: SODIUM ZIRCONIUM CYCLOSILICATE 10 GM PACK PO SCH (09:18)
[2022-04-14] MEDS: PANTOPRAZOLE 40 MG TABLET PO SCH ×2 (09:18→21:35)
[2022-04-14] MEDS ORDERED: fentaNYL 100 MCG/2 ML VIAL IV ONE (11:50)
[2022-04-14] MEDS ORDERED: DIAZEPAM 5 MG TABLET PO ONE (11:50)
[2022-04-14] MEDS ORDERED: MIDAZOLAM 2 MG/2 ML VIAL IV ONE (11:50)
[2022-04-14] MEDS ORDERED: SODIUM CHLORIDE 0.45% 1,000 ML IV SCH (12:00)
[2022-04-14] MEDS ORDERED: GLUCAGON 1 MG VIAL ONE (14:55)
[2022-04-14] MEDS: ONDANSETRON 4 MG/2 ML VIAL IV PRN ×2 (15:05→21:28)
[2022-04-14] MEDS ORDERED: GLUCAGON 1 MG VIAL IV ONE (15:24)
[2022-04-14] MEDS ORDERED: LIDOCAINE 1%/EPI INJ 20 ML VIAL ONE (15:29)
[2022-04-14] MEDS: FAT EMULSION 20% 250 ML IV SCH (17:58)
[2022-04-14] MEDS: DEXTROSE IV SCH (21:32)
[2022-04-14] MEDS: AMINO ACIDS IV SCH (21:32)
[2022-04-14] MEDS: MULTIVITAMIN IV SCH (21:32)
[2022-04-14] MEDS: ESCITALOPRAM 10 MG TABLET PO SCH (21:35)
[2022-04-15] MEDS: INSULIN LISPRO 100 UNIT/ML SUBCUT SCH ×4 (00:05→17:00)
[2022-04-15 00:59] LABS: Basophils % 0.2 % (0.0-0.8); Eosinophils # 0.1 10*3/uL (0.0-0.87); Eosinophils % 0.5 % (0.00-10.9); Hematocrit 25.4 VOL% (35.7-47.0); Hemoglobin 7.5 GM/DL (12.0-16.0); Immature Granulocytes % 1.8 %; Immature Granulocytes Absolute 0.29 #; Lymphocytes # 0.8 10*3/uL (1.4-4.0); Lymphocytes % 4.9 % (21.3-54.2); Mean Corpuscular HGB Conc 29.5 GM/DL (32-36); Mean Corpuscular Volume 77.2 FL (87-102); Monocytes # 1.1 10*3/uL (0.11-0.8); Neutrophils % 85.6 % (38.7-73.9); Platelet Count 443 T/CUMM (130-400); Red Blood Count 3.29 MC/CUMM (3.8-5.5); Red Cell Distribution Width 25.2 % (9.3-17.3); White Blood Count 16.3 T/CUMM (4-12)
[2022-04-15] MEDS ORDERED: LACTATED RINGERS 1,000 ML IV ONE (01:02)
[2022-04-15 01:15] LABS: Calcium 8.6 MG/DL (8.5-10.1); Osmolality,Calculated 279.2 MOS/KG (273-304); Potassium 4.7 MMOL/L (3.5-5.1)
[2022-04-15] MEDS ORDERED: SODIUM CHLORIDE 0.9% 1,000 ML IV ONE ×2 (01:18→10:45)
[2022-04-15 01:28] LABS: Band Neutrophils 5 % (0-10); Lymphocytes 5 % (20-55); Total Cells Counted 100
[2022-04-15 01:29] LABS: Platelet Estimate Increased
[2022-04-15 01:30] LABS: Anisocytosis 2+; Hypochromia Slight
[2022-04-15 01:31] LABS: Arterial Base Excess iSTAT -8 MMOL/L (-2.5-2.5); Arterial Bicarbonate iSTAT 18.1 MMOL/L (20-26); Arterial O2 Saturation iSTAT 97 % (95-100); Arterial PCO2 iSTAT 40 MM HG (35-48); Arterial PO2 iSTAT 102 MM HG (80-95); Arterial Total CO2 iSTAT 19 MMO/L (23-27); Arterial pH iSTAT 7.264 (7.35-7.45)
[2022-04-15] MEDS ORDERED: SODIUM BICARBONATE 50 MEQ/50 ML VIAL IV ONE ×3 (01:37→10:45)
[2022-04-15 02:09] LABS: Albumin 1.2 G/DL (3.4-5.0); Bilirubin,Total 2.3 MG/DL (0.20-1.00); Calcium 8.3 MG/DL (8.5-10.1); Osmolality,Calculated 277.2 MOS/KG (273-304); Potassium 4.9 MMOL/L (3.5-5.1)
[2022-04-15 02:09] LABS: Hyaline Casts,Urine 3 /LPF (0-3); Mucus,Urine Occasional /LPF (Occasional); RBC,Urine 26 /HPF (0-4); Squamous Epithelial Cell,Urine Occasional /HPF (0-10)
[2022-04-15 02:12] LABS: Bilirubin,Urine Small mg/dL (Negative); Blood, Urine Negative (Negative); Glucose,Urine (UA) Negative (Negative); Ketones,Urine Negative (Negative); Nitrite,Urine Negative (Negative); Protein,Urine Trace mg/dL (Negative); Urine Appearance SL CLOUDY (Clear); Urine Color Yellow (Yellow); Urine Specific Gravity 1.015 (1.001-1.035); Urine Urobilinogen 0.2 eU/dL (<2.0)
[2022-04-15] MEDS: PIPERACILLIN/TAZOBACTAM 3,375 MG in SODIUM CHLORIDE 0.9% 100 ML IV SCH ×2 (02:40→13:42)
[2022-04-15] MEDS: SODIUM CHLORIDE 0.9% 1,000 ML IV SCH ×2 (02:57→09:38)
[2022-04-15] MEDS ORDERED: ALBUTEROL 2.5 MG/3 ML NEB RESP TX PRN (03:42)
[2022-04-15 04:52] LABS: INR 1.1; PT Patient Result 12.4 SECS (10.1-12.1)
[2022-04-15] MEDS: NOREPINEPHRINE DRIP 8 MG/250 ML PREMIX IV PRN (05:10)
[2022-04-15] MEDS ORDERED: ALBUMIN 5% 12.5 GM/250 ML VIAL IV ONE (08:04)
[2022-04-15 08:17] LABS: Arterial Bicarbonate iSTAT 19.5 MMOL/L (20-26); Arterial pH iSTAT 7.147 (7.35-7.45)
[2022-04-15] MEDS: PHENYLEPHRINE DRIP 40 MG/250 ML PREMIX IV PRN ×3 (08:20→12:48)
[2022-04-15] MEDS: BISACODYL 5 MG TABLET PO SCH (08:26)
[2022-04-15] MEDS: PANTOPRAZOLE 40 MG TABLET PO SCH (08:26)
[2022-04-15] MEDS: SUCRALFATE 1 GM/10 ML UDCUP PO SCH ×2 (08:26→11:06)
[2022-04-15] MEDS: SODIUM ZIRCONIUM CYCLOSILICATE 10 GM PACK PO SCH (08:26)
[2022-04-15 08:36] LABS: Albumin 1.2 G/DL (3.4-5.0); Bilirubin,Total 2.1 MG/DL (0.20-1.00); Osmolality,Calculated 284.9 MOS/KG (273-304); Phosphorous 5.4 MG/DL (2.5-4.9); Potassium 4.7 MMOL/L (3.5-5.1); Total Protein 6.7 G/DL (6.4-8.2)
[2022-04-15 08:38] LABS: Basophils % 0.1 % (0.0-0.8); Eosinophils # 0.1 10*3/uL (0.0-0.87); Eosinophils % 0.3 % (0.00-10.9); Hemoglobin 7.1 GM/DL (12.0-16.0); Immature Granulocytes % 2.4 %; Immature Granulocytes Absolute 0.45 #; Lymphocytes # 0.9 10*3/uL (1.4-4.0); Lymphocytes % 4.7 % (21.3-54.2); Mean Corpuscular HGB Conc 29.6 GM/DL (32-36); Mean Corpuscular Volume 77.4 FL (87-102); Monocytes # 1.3 10*3/uL (0.11-0.8); Monocytes % 6.7 % (1.7-12.7); NRBC # 0.02 10*3/uL; Neutrophils % 85.8 % (38.7-73.9); Platelet Count 458 T/CUMM (130-400); Red Cell Distribution Width 25.2 % (9.3-17.3); White Blood Count 18.9 T/CUMM (4-12)
[2022-04-15 08:50] LABS: Eosinophils 1 % (0-10); Lymphocytes 5 % (20-55); Platelet Estimate Increased
[2022-04-15 08:54] LABS: Total Cells Counted 100
[2022-04-15 08:56] LABS: Hypochromia 2+
[2022-04-15 08:57] LABS: Anisocytosis 1+
[2022-04-15 10:49] LABS: Arterial Bicarbonate iSTAT 19.1 MMOL/L (20-26); Arterial pH iSTAT 7.244 (7.35-7.45)
[2022-04-15] MEDS: HYDROCORTISONE 100 MG VIAL IV SCH ×2 (11:04→18:25)
[2022-04-15] MEDS: PANTOPRAZOLE 40 MG VIAL IV SCH (11:06)
[2022-04-15] MEDS: SODIUM BICARB INJ 150 MEQ in DEXTROSE 5% 1,000 ML IV SCH ×2 (12:00→20:24)
[2022-04-15] MEDS: ONDANSETRON 4 MG/2 ML VIAL IV PRN ×2 (13:42→20:20)
[2022-04-15] MEDS: FAT EMULSION 20% 250 ML IV SCH (15:05)
[2022-04-15] MEDS ORDERED: SODIUM CHLORIDE IV SCH (17:00)
[2022-04-15] MEDS ORDERED: [UNRECOGNIZED DRUG - OTHER] IV SCH (17:00)
[2022-04-15] MEDS ORDERED: MULTIVITAMIN IV SCH (17:00)
[2022-04-15] MEDS: LACTATED RINGERS 1,000 ML IV SCH (17:02)
[2022-04-15 17:07] LABS: Amylase,Pleural Fluid 22 U/L; Glucose,Pleural Fluid 116 MG/DL; LDH,Pleural Fluid 225 U/L; Total Protein,Pleural Fluid 4.6 G/DL
[2022-04-15 17:23] LABS: Lymphocytes,Pleural Fluid 90 %; Monocytes,Pleural Fluid 4 %; Neutrophils,Pleural Fluid 6 %
[2022-04-15 17:26] LABS: RBC,Pleural Fluid 8803 T/CUMM
[2022-04-15 17:48] LABS: Calcium 7.8 MG/DL (8.5-10.1); Osmolality,Calculated 296.9 MOS/KG (273-304); Potassium 4.4 MMOL/L (3.5-5.1)
[2022-04-15] MEDS: ESCITALOPRAM 10 MG TABLET PO SCH (20:23)
[2022-04-15] MEDS ORDERED: PROMETHAZINE INJ 12.5 MG in SODIUM CHLORIDE 0.9% 50 ML IV ONE (21:46)
[2022-04-15 22:19] LABS: Arterial Bicarbonate iSTAT 21.6 MMOL/L (20-26); Arterial pH iSTAT 7.335 (7.35-7.45)
[2022-04-16] MEDS: INSULIN LISPRO 100 UNIT/ML SUBCUT SCH ×4 (00:26→17:04)
[2022-04-16] MEDS: PIPERACILLIN/TAZOBACTAM 3,375 MG in SODIUM CHLORIDE 0.9% 100 ML IV SCH ×2 (01:53→13:44)
[2022-04-16] MEDS: NOREPINEPHRINE DRIP 8 MG/250 ML PREMIX IV PRN (02:55)
[2022-04-16] MEDS: HYDROCORTISONE 100 MG VIAL IV SCH ×3 (03:31→18:10)
[2022-04-16 03:49] LABS: Arterial pH iSTAT 7.396 (7.35-7.45)
[2022-04-16 04:03] LABS: Basophils % 0.1 % (0.0-0.8); Hematocrit 24.1 VOL% (35.7-47.0); Hemoglobin 7.6 GM/DL (12.0-16.0); Immature Granulocytes % 0.9 %; Lymphocytes # 0.6 10*3/uL (1.4-4.0); Lymphocytes % 2.7 % (21.3-54.2); Mean Corpuscular HGB Conc 31.5 GM/DL (32-36); Mean Corpuscular Volume 73.5 FL (87-102); Monocytes # 0.8 10*3/uL (0.11-0.8); Monocytes % 3.7 % (1.7-12.7); Neutrophils % 92.6 % (38.7-73.9); Platelet Count 498 T/CUMM (130-400); Red Blood Count 3.28 MC/CUMM (3.8-5.5); Red Cell Distribution Width 24.9 % (9.3-17.3); White Blood Count 21.4 T/CUMM (4-12)
[2022-04-16 04:13] LABS: Albumin 1.3 G/DL (3.4-5.0); Bilirubin,Total 2.6 MG/DL (0.20-1.00); Calcium 7.4 MG/DL (8.5-10.1); Osmolality,Calculated 296.9 MOS/KG (273-304); Potassium 4.1 MMOL/L (3.5-5.1); Total Protein 6.2 G/DL (6.4-8.2)
[2022-04-16 05:00] LABS: Band Neutrophils 1 % (0-10); Lymphocytes 1 % (20-55); Total Cells Counted 100
[2022-04-16 05:01] LABS: Anisocytosis Slight; Giant Platelets Few; Platelet Estimate Increased
[2022-04-16] MEDS: SODIUM BICARB INJ 150 MEQ in DEXTROSE 5% 1,000 ML IV SCH ×4 (05:15→20:36)
[2022-04-16] MEDS: ESCITALOPRAM 10 MG TABLET PO SCH ×2 (05:17→22:22)
[2022-04-16] MEDS: PANTOPRAZOLE 40 MG VIAL IV SCH (08:18)
[2022-04-16] MEDS: SODIUM ZIRCONIUM CYCLOSILICATE 10 GM PACK PO SCH (08:18)
[2022-04-16] MEDS: BISACODYL 5 MG TABLET PO SCH (08:18)
[2022-04-16] MEDS: FAT EMULSION 20% 250 ML IV SCH (13:44)
[2022-04-17] MEDS: INSULIN LISPRO 100 UNIT/ML SUBCUT SCH ×4 (00:41→18:24)
[2022-04-17] MEDS: PIPERACILLIN/TAZOBACTAM 3,375 MG in SODIUM CHLORIDE 0.9% 100 ML IV SCH (02:09)
[2022-04-17] MEDS: HYDROCORTISONE 100 MG VIAL IV SCH ×3 (02:09→18:25)
[2022-04-17 04:10] LABS: Basophils % 0.1 % (0.0-0.8); Hemoglobin 8.2 GM/DL (12.0-16.0); Immature Granulocytes % 0.8 %; Immature Granulocytes Absolute 0.17 #; Lymphocytes # 0.6 10*3/uL (1.4-4.0); Lymphocytes % 2.8 % (21.3-54.2); Mean Corpuscular HGB Conc 32.8 GM/DL (32-36); Mean Corpuscular Volume 69.8 FL (87-102); Monocytes % 4.8 % (1.7-12.7); NRBC # 0.02 10*3/uL; Neutrophils % 91.5 % (38.7-73.9); Platelet Count 559 T/CUMM (130-400); Red Blood Count 3.58 MC/CUMM (3.8-5.5); White Blood Count 20.2 T/CUMM (4-12)
[2022-04-17 04:23] LABS: Albumin 1.1 G/DL (3.4-5.0); Calcium 7.1 MG/DL (8.5-10.1); Osmolality,Calculated 292.8 MOS/KG (273-304); Potassium 3.4 MMOL/L (3.5-5.1); Total Protein 6.2 G/DL (6.4-8.2)
[2022-04-17] MEDS: SODIUM BICARB INJ 150 MEQ in DEXTROSE 5% 1,000 ML IV SCH ×3 (04:34→21:39)
[2022-04-17] MEDS: MORPHINE 2 MG/1 ML SYRINGE IV PRN ×2 (04:40→18:35)
[2022-04-17 05:07] LABS: Band Neutrophils 2 % (0-10); Lymphocytes 1 % (20-55); Total Cells Counted 100
[2022-04-17 05:08] LABS: Anisocytosis 2+; Hypochromia 2+; Microcytosis 2+; Platelet Estimate Increased
[2022-04-17 05:09] LABS: Target Cells 1+
[2022-04-17] MEDS: BISACODYL 5 MG TABLET PO SCH (08:15)
[2022-04-17] MEDS: PANTOPRAZOLE 40 MG VIAL IV SCH (08:16)
[2022-04-17] MEDS: MEROPENEM 500 MG in SODIUM CHLORIDE 0.9% 100 ML IV SCH ×2 (09:42→21:40)
[2022-04-17] MEDS: FAT EMULSION 20% 250 ML IV SCH (13:29)
[2022-04-17] MEDS: ESCITALOPRAM 10 MG TABLET PO SCH (21:40)
[2022-04-18] MEDS: INSULIN LISPRO 100 UNIT/ML SUBCUT SCH ×4 (00:52→17:31)
[2022-04-18] MEDS: MORPHINE 2 MG/1 ML SYRINGE IV PRN ×3 (01:02→21:38)
[2022-04-18] MEDS: HYDROCORTISONE 100 MG VIAL IV SCH ×3 (03:52→21:06)
[2022-04-18 05:50] LABS: Basophils % 0.1 % (0.0-0.8); Hematocrit 25.5 VOL% (35.7-47.0); Hemoglobin 8.1 GM/DL (12.0-16.0); Immature Granulocytes Absolute 0.19 #; Lymphocytes # 0.5 10*3/uL (1.4-4.0); Lymphocytes % 2.6 % (21.3-54.2); Mean Corpuscular HGB Conc 31.8 GM/DL (32-36); Monocytes # 1.5 10*3/uL (0.11-0.8); Monocytes % 7.8 % (1.7-12.7); NRBC # 0.02 10*3/uL; Neutrophils % 88.5 % (38.7-73.9); Platelet Count 549 T/CUMM (130-400); Red Blood Count 3.54 MC/CUMM (3.8-5.5); Red Cell Distribution Width 24.1 % (9.3-17.3); White Blood Count 19.2 T/CUMM (4-12)
[2022-04-18 06:08] LABS: Phosphorous 5.1 MG/DL (2.5-4.9)
[2022-04-18 06:10] LABS: Lymphocytes 2 % (20-55); Platelet Estimate Adequate; Total Cells Counted 100
[2022-04-18 06:11] LABS: Hypochromia 1+; Microcytosis 1+
[2022-04-18 06:12] LABS: Bilirubin,Total 1.4 MG/DL (0.20-1.00); Calcium 6.9 MG/DL (8.5-10.1); Osmolality,Calculated 299.1 MOS/KG (273-304); Potassium 2.6 MMOL/L (3.5-5.1); Total Protein 5.7 G/DL (6.4-8.2)
[2022-04-18] MEDS: BISACODYL 5 MG TABLET PO SCH (10:02)
[2022-04-18] MEDS: MEROPENEM 500 MG in SODIUM CHLORIDE 0.9% 100 ML IV SCH ×2 (10:09→21:06)
[2022-04-18] MEDS: PANTOPRAZOLE 40 MG VIAL IV SCH (10:09)
[2022-04-18] MEDS: SODIUM BICARB INJ 150 MEQ in DEXTROSE 5% 1,000 ML IV SCH (11:40)
[2022-04-18] MEDS: POTASSIUM CHLORIDE INJ 40 MEQ in DEXTROSE 5% 1,000 ML IV SCH (13:29)
[2022-04-18] MEDS: FAT EMULSION 20% 250 ML IV SCH (13:30)
[2022-04-18] MEDS: ESCITALOPRAM 10 MG TABLET PO SCH (21:06)
[2022-04-19] MEDS: INSULIN LISPRO 100 UNIT/ML SUBCUT SCH ×2 (00:43→06:01)
[2022-04-19] MEDS: POTASSIUM CHLORIDE INJ 40 MEQ in DEXTROSE 5% 1,000 ML IV SCH ×2 (03:33→21:45)
[2022-04-19] MEDS: MORPHINE 2 MG/1 ML SYRINGE IV PRN ×4 (03:34→22:49)
[2022-04-19 05:35] LABS: Basophils # 0.1 10*3/uL (0.0-0.2); Basophils % 0.2 % (0.0-0.8); Hematocrit 28.6 VOL% (35.7-47.0); Hemoglobin 8.6 GM/DL (12.0-16.0); Immature Granulocytes % 2.7 %; Immature Granulocytes Absolute 0.84 #; Lymphocytes % 3.2 % (21.3-54.2); Mean Corpuscular HGB Conc 30.1 GM/DL (32-36); Mean Corpuscular Volume 75.3 FL (87-102); Mean Platelet Volume 11.7 FL (9.6-12.0); Monocytes # 1.6 10*3/uL (0.11-0.8); Monocytes % 5.2 % (1.7-12.7); NRBC # 0.02 10*3/uL; Neutrophils % 88.7 % (38.7-73.9); Platelet Count 602 T/CUMM (130-400); Red Cell Distribution Width 24.1 % (9.3-17.3); White Blood Count 30.9 T/CUMM (4-12)
[2022-04-19 05:54] LABS: Albumin 1.1 G/DL (3.4-5.0); Bilirubin,Total 1.2 MG/DL (0.20-1.00); Calcium 7.3 MG/DL (8.5-10.1); Osmolality,Calculated 287.7 MOS/KG (273-304); Potassium 2.9 MMOL/L (3.5-5.1); Total Protein 5.9 G/DL (6.4-8.2)
[2022-04-19] MEDS: HYDROCORTISONE 100 MG VIAL IV SCH ×2 (05:55→21:48)
[2022-04-19 05:58] LABS: Hypochromia Slight; Lymphocytes 2 % (20-55); Microcytosis Slight; Platelet Estimate Increased; Total Cells Counted 100
[2022-04-19] MEDS ORDERED: POTASSIUM CHLORIDE RIDER 10 MEQ/100 ML PREMIX IV PRN (06:02)
[2022-04-19] MEDS: BISACODYL 5 MG TABLET PO SCH (09:45)
[2022-04-19] MEDS: MEROPENEM 500 MG in SODIUM CHLORIDE 0.9% 100 ML IV SCH ×2 (09:45→21:45)
[2022-04-19] MEDS: OMEPRAZOLE ODT 20 MG TABLET PER TUBE SCH (09:45)
[2022-04-19] MEDS ORDERED: POTASSIUM CHLORIDE INJ 50 MEQ in SODIUM CHLORIDE 0.9% 500 ML IV ONE (11:00)
[2022-04-19] MEDS: ESCITALOPRAM 10 MG TABLET PO SCH (21:51)
[2022-04-20] MEDS: MORPHINE 2 MG/1 ML SYRINGE IV PRN ×3 (04:10→16:18)
[2022-04-20 04:38] LABS: Basophils # 0.1 10*3/uL (0.0-0.2); Basophils % 0.2 % (0.0-0.8); Eosinophils # 0.1 10*3/uL (0.0-0.87); Eosinophils % 0.2 % (0.00-10.9); Hematocrit 29.1 VOL% (35.7-47.0); Hemoglobin 9.1 GM/DL (12.0-16.0); Immature Granulocytes % 2.8 %; Immature Granulocytes Absolute 0.88 #; Lymphocytes # 1.3 10*3/uL (1.4-4.0); Lymphocytes % 4.1 % (21.3-54.2); Mean Corpuscular HGB Conc 31.3 GM/DL (32-36); Mean Corpuscular Volume 74.6 FL (87-102); Mean Platelet Volume 11.8 FL (9.6-12.0); Monocytes % 6.3 % (1.7-12.7); NRBC # 0.08 10*3/uL; Neutrophils % 86.4 % (38.7-73.9); Platelet Count 590 T/CUMM (130-400); Red Cell Distribution Width 23.6 % (9.3-17.3); White Blood Count 31.2 T/CUMM (4-12)
[2022-04-20 05:00] LABS: Lymphocytes 6 % (20-55); Total Cells Counted 100
[2022-04-20 05:01] LABS: Hypochromia 1+; Microcytosis 1+; Platelet Estimate Adequate
[2022-04-20 05:04] LABS: Albumin 1.3 G/DL (3.4-5.0); Bilirubin,Total 1.4 MG/DL (0.20-1.00); Calcium 7.9 MG/DL (8.5-10.1); Osmolality,Calculated 290.5 MOS/KG (273-304); Potassium 3.9 MMOL/L (3.5-5.1)
[2022-04-20] MEDS: MEROPENEM 500 MG in SODIUM CHLORIDE 0.9% 100 ML IV SCH ×2 (08:45→20:48)
[2022-04-20] MEDS: HYDROCORTISONE 100 MG VIAL IV SCH ×2 (08:46→20:58)
[2022-04-20] MEDS: BISACODYL 5 MG TABLET PO SCH (08:50)
[2022-04-20] MEDS: OMEPRAZOLE ODT 20 MG TABLET PER TUBE SCH (08:51)
[2022-04-20] MEDS: POTASSIUM CHLORIDE INJ 40 MEQ in DEXTROSE 5% 1,000 ML IV SCH (10:10)
[2022-04-20] MEDS: ONDANSETRON 4 MG/2 ML VIAL IV PRN (17:38)
[2022-04-20] MEDS: ESCITALOPRAM 10 MG TABLET PO SCH (20:46)
[2022-04-21] MEDS ORDERED: SODIUM CHLORIDE 0.9% 250 ML IV ONE (01:30)
[2022-04-21 06:39] LABS: Albumin 1.2 G/DL (3.4-5.0); Bilirubin,Total 2.5 MG/DL (0.20-1.00); Calcium 8.5 MG/DL (8.5-10.1); Osmolality,Calculated 290.5 MOS/KG (273-304); Potassium 4.4 MMOL/L (3.5-5.1)
[2022-04-21 06:45] LABS: Phosphorous 5.8 MG/DL (2.5-4.9)
[2022-04-21] MEDS: MORPHINE 2 MG/1 ML SYRINGE IV PRN ×2 (07:54→12:17)
[2022-04-21] MEDS: BISACODYL 5 MG TABLET PO SCH (08:06)
[2022-04-21] MEDS: MEROPENEM 500 MG in SODIUM CHLORIDE 0.9% 100 ML IV SCH ×2 (08:06→20:27)
[2022-04-21] MEDS: HYDROCORTISONE 100 MG VIAL IV SCH ×2 (08:07→13:05)
[2022-04-21] MEDS: OMEPRAZOLE ODT 20 MG TABLET PER TUBE SCH (08:07)
[2022-04-21 08:21] LABS: Basophils # 0.1 10*3/uL (0.0-0.2); Basophils % 0.2 % (0.0-0.8); Hematocrit 28.8 VOL% (35.7-47.0); Immature Granulocytes % 1.9 %; Immature Granulocytes Absolute 0.76 #; Lymphocytes # 1.1 10*3/uL (1.4-4.0); Lymphocytes % 2.7 % (21.3-54.2); Mean Corpuscular HGB Conc 31.3 GM/DL (32-36); Mean Corpuscular Volume 74.8 FL (87-102); Monocytes # 1.2 10*3/uL (0.11-0.8); Neutrophils % 92.2 % (38.7-73.9); Platelet Count 640 T/CUMM (130-400); Red Blood Count 3.85 MC/CUMM (3.8-5.5); Red Cell Distribution Width 24.2 % (9.3-17.3)
[2022-04-21 08:25] LABS: White Blood Count 40.7 T/CUMM (4-12)
[2022-04-21 08:59] LABS: Anisocytosis 1+; Band Neutrophils 9 % (0-10); Hypochromia 1+; Lymphocytes 5 % (20-55); Platelet Estimate Increased; Total Cells Counted 100
[2022-04-21] MEDS: LEVOFLOXACIN INJ 500 MG/100 ML PREMIX IV SCH (10:08)
[2022-04-21] MEDS ORDERED: VANCOMYCIN INJ 1,250 MG in SODIUM CHLORIDE 0.9% 250 ML IV ONE ×2 (11:00→13:30)
[2022-04-21] MEDS ORDERED: MIDAZOLAM 2 MG/2 ML VIAL IV ONE (11:22)
[2022-04-21] MEDS ORDERED: fentaNYL 100 MCG/2 ML VIAL IV ONE (11:22)
[2022-04-21] MEDS: FUROSEMIDE 40 MG/4 ML VIAL IV SCH ×2 (11:54→20:26)
[2022-04-21] MEDS: ALBUMIN 25% 12.5 GM/50 ML VIAL IV SCH ×2 (12:25→18:19)
[2022-04-21] MEDS ORDERED: SODIUM CHLORIDE 0.9% 1,000 ML IV ONE (12:33)
[2022-04-21] MEDS ORDERED: FLUCONAZOLE INJ 200 MG/100 ML PREMIX IV SCH (13:00)
[2022-04-21] MEDS: MICAFUNGIN 100 MG in SODIUM CHLORIDE 0.9% 100 ML IV SCH (13:31)
[2022-04-21] MEDS ORDERED: SODIUM BICARBONATE 50 MEQ/50 ML VIAL IV ONE (14:13)
[2022-04-21] MEDS: SODIUM BICARB INJ 50 MEQ in SODIUM CHLORIDE 0.45% 1,000 ML IV SCH (15:45)
[2022-04-21] MEDS: ESCITALOPRAM 10 MG TABLET PO SCH (20:41)
[2022-04-22] MEDS: ALBUMIN 25% 12.5 GM/50 ML VIAL IV SCH (02:10)
[2022-04-22] MEDS: HYDROCORTISONE 100 MG VIAL IV SCH ×2 (02:10→12:15)
[2022-04-22] MEDS: SODIUM BICARB INJ 50 MEQ in SODIUM CHLORIDE 0.45% 1,000 ML IV SCH ×2 (03:40→14:49)
[2022-04-22] MEDS: MORPHINE 2 MG/1 ML SYRINGE IV PRN ×3 (04:35→12:23)
[2022-04-22 05:11] LABS: Basophils % 0.1 % (0.0-0.8); Hematocrit 23.5 VOL% (35.7-47.0); Hemoglobin 7.3 GM/DL (12.0-16.0); Immature Granulocytes % 0.8 %; Lymphocytes # 0.5 10*3/uL (1.4-4.0); Lymphocytes % 2.2 % (21.3-54.2); Mean Corpuscular HGB Conc 31.1 GM/DL (32-36); Mean Corpuscular Volume 75.6 FL (87-102); Mean Platelet Volume 12.3 FL (9.6-12.0); Monocytes # 0.7 10*3/uL (0.11-0.8); Monocytes % 2.9 % (1.7-12.7); Platelet Count 494 T/CUMM (130-400); Red Blood Count 3.11 MC/CUMM (3.8-5.5); Red Cell Distribution Width 23.9 % (9.3-17.3); White Blood Count 23.7 T/CUMM (4-12)
[2022-04-22 05:26] LABS: Albumin 1.7 G/DL (3.4-5.0); Bilirubin,Total 3.5 MG/DL (0.20-1.00); Calcium 8.2 MG/DL (8.5-10.1); Potassium 3.8 MMOL/L (3.5-5.1); Total Protein 5.3 G/DL (6.4-8.2)
[2022-04-22 06:21] LABS: Anisocytosis 2+; Band Neutrophils 11 % (0-10); Lymphocytes 3 % (20-55); Platelet Estimate Normal; Target Cells 1+; Total Cells Counted 100
[2022-04-22 06:22] LABS: Hypochromia Slight; Macrocytosis Slight
[2022-04-22] MEDS ORDERED: VANCOMYCIN INJ 1,000 MG in SODIUM CHLORIDE 0.9% 250 ML IV PRN (08:04)
[2022-04-22] MEDS: OMEPRAZOLE ODT 20 MG TABLET PER TUBE SCH (08:49)
[2022-04-22] MEDS: MEROPENEM 500 MG in SODIUM CHLORIDE 0.9% 100 ML IV SCH ×2 (10:28→21:06)
[2022-04-22] MEDS: FUROSEMIDE 40 MG/4 ML VIAL IV SCH ×2 (10:28→21:07)
[2022-04-22] MEDS ORDERED: VANCOMYCIN INJ 1,000 MG in SODIUM CHLORIDE 0.9% 250 ML IV ONE (12:00)
[2022-04-22] MEDS: MICAFUNGIN 100 MG in SODIUM CHLORIDE 0.9% 100 ML IV SCH (14:49)
[2022-04-22] MEDS: ESCITALOPRAM 10 MG TABLET PO SCH (21:07)
[2022-04-23] MEDS: HYDROCORTISONE 100 MG VIAL IV SCH ×2 (00:48→14:20)
[2022-04-23] MEDS: MORPHINE 2 MG/1 ML SYRINGE IV PRN ×3 (00:49→21:22)
[2022-04-23] MEDS: SODIUM BICARB INJ 50 MEQ in SODIUM CHLORIDE 0.45% 1,000 ML IV SCH (02:27)
[2022-04-23 03:31] LABS: Basophils % 0.1 % (0.0-0.8); Hematocrit 31.2 VOL% (35.7-47.0); Hemoglobin 9.7 GM/DL (12.0-16.0); Immature Granulocytes % 1.2 %; Immature Granulocytes Absolute 0.33 #; Lymphocytes # 0.5 10*3/uL (1.4-4.0); Mean Corpuscular HGB Conc 31.1 GM/DL (32-36); Mean Platelet Volume 11.1 FL (9.6-12.0); Monocytes # 0.8 10*3/uL (0.11-0.8); Monocytes % 2.9 % (1.7-12.7); Neutrophils % 93.8 % (38.7-73.9); Platelet Count 456 T/CUMM (130-400); Red Cell Distribution Width 22.7 % (9.3-17.3); White Blood Count 27.3 T/CUMM (4-12)
[2022-04-23 03:55] LABS: Hypochromia 1+; Lymphocytes 1 % (20-55); Microcytosis 1+; Platelet Estimate Adequate; Target Cells Slight; Total Cells Counted 100
[2022-04-23 04:03] LABS: Albumin 1.4 G/DL (3.4-5.0); Bilirubin,Total 3.5 MG/DL (0.20-1.00); Calcium 8.4 MG/DL (8.5-10.1); Osmolality,Calculated 303.5 MOS/KG (273-304); Potassium 3.9 MMOL/L (3.5-5.1); Total Protein 5.1 G/DL (6.4-8.2)
[2022-04-23] MEDS: FUROSEMIDE 40 MG/4 ML VIAL IV SCH ×2 (08:38→20:13)
[2022-04-23] MEDS: OMEPRAZOLE ODT 20 MG TABLET PER TUBE SCH (08:38)
[2022-04-23] MEDS: MEROPENEM 500 MG in SODIUM CHLORIDE 0.9% 100 ML IV SCH ×2 (08:39→20:13)
[2022-04-23] MEDS: LEVOFLOXACIN INJ 500 MG/100 ML PREMIX IV SCH (08:40)
[2022-04-23] MEDS: FAT EMULSION 20% 250 ML IV SCH (14:20)
[2022-04-23] MEDS: MICAFUNGIN 100 MG in SODIUM CHLORIDE 0.9% 100 ML IV SCH (14:20)
[2022-04-23] MEDS: MULTIVITAMIN INJ 10 ML in AMINO ACIDS/DEXT/LYTES 5-15% 1,000 ML IV SCH (18:13)
[2022-04-23] MEDS: ESCITALOPRAM 10 MG TABLET PO SCH (20:12)
[2022-04-24] MEDS: HYDROCORTISONE 100 MG VIAL IV SCH ×2 (00:09→12:27)
[2022-04-24 03:47] LABS: Basophils # 0.1 10*3/uL (0.0-0.2); Basophils % 0.2 % (0.0-0.8); Hematocrit 33.7 VOL% (35.7-47.0); Hemoglobin 10.4 GM/DL (12.0-16.0); Immature Granulocytes % 1.9 %; Immature Granulocytes Absolute 0.61 #; Lymphocytes # 0.5 10*3/uL (1.4-4.0); Lymphocytes % 1.6 % (21.3-54.2); Mean Corpuscular HGB Conc 30.9 GM/DL (32-36); Mean Corpuscular Volume 79.7 FL (87-102); Monocytes % 3.2 % (1.7-12.7); Neutrophils % 93.1 % (38.7-73.9); Platelet Count 383 T/CUMM (130-400); Red Blood Count 4.23 MC/CUMM (3.8-5.5); Red Cell Distribution Width 22.8 % (9.3-17.3); White Blood Count 32.64 T/CUMM (4-12)
[2022-04-24 04:16] LABS: Albumin 1.3 G/DL (3.4-5.0); Bilirubin,Total 2.5 MG/DL (0.20-1.00); Calcium 8.3 MG/DL (8.5-10.1); Potassium 3.4 MMOL/L (3.5-5.1); Total Protein 5.4 G/DL (6.4-8.2)
[2022-04-24 04:17] LABS: Hypochromia Slight; Lymphocytes 3 % (20-55); Microcytosis 1+; Platelet Estimate Normal; Total Cells Counted 100
[2022-04-24] MEDS: MEROPENEM 500 MG in SODIUM CHLORIDE 0.9% 100 ML IV SCH ×2 (08:10→20:54)
[2022-04-24] MEDS: ONDANSETRON 4 MG/2 ML VIAL IV PRN (08:10)
[2022-04-24] MEDS: MORPHINE 2 MG/1 ML SYRINGE IV PRN ×4 (08:10→20:55)
[2022-04-24] MEDS: FUROSEMIDE 40 MG/4 ML VIAL IV SCH ×2 (08:10→20:54)
[2022-04-24] MEDS: OMEPRAZOLE ODT 20 MG TABLET PER TUBE SCH (08:11)
[2022-04-24] MEDS: FAT EMULSION 20% 250 ML IV SCH (13:55)
[2022-04-24] MEDS: MICAFUNGIN 100 MG in SODIUM CHLORIDE 0.9% 100 ML IV SCH (13:55)
[2022-04-24] MEDS ORDERED: VANCOMYCIN INJ 1,000 MG in SODIUM CHLORIDE 0.9% 250 ML IV ONE (18:00)
[2022-04-24] MEDS: MULTIVITAMIN INJ 10 ML in AMINO ACIDS/DEXT/LYTES 5-15% 1,000 ML IV SCH (18:00)
[2022-04-24] MEDS: ESCITALOPRAM 10 MG TABLET PO SCH (20:54)
[2022-04-24] MEDS: PANTOPRAZOLE 40 MG VIAL IV SCH (20:54)
[2022-04-25] MEDS: HYDROCORTISONE 100 MG VIAL IV SCH ×3 (00:41→21:02)
[2022-04-25] MEDS: MORPHINE 2 MG/1 ML SYRINGE IV PRN ×4 (02:38→21:01)
[2022-04-25 03:53] LABS: Basophils # 0.1 10*3/uL (0.0-0.2); Basophils % 0.2 % (0.0-0.8); Eosinophils % 0.1 % (0.00-10.9); Hemoglobin 10.4 GM/DL (12.0-16.0); Immature Granulocytes % 2.5 %; Immature Granulocytes Absolute 0.92 #; Lymphocytes # 0.7 10*3/uL (1.4-4.0); Lymphocytes % 1.8 % (21.3-54.2); Mean Corpuscular HGB Conc 30.6 GM/DL (32-36); Monocytes # 1.5 10*3/uL (0.11-0.8); Monocytes % 4.2 % (1.7-12.7); Neutrophils % 91.2 % (38.7-73.9); Platelet Count 315 T/CUMM (130-400); Red Cell Distribution Width 22.7 % (9.3-17.3); White Blood Count 36.43 T/CUMM (4-12)
[2022-04-25 04:10] LABS: Platelet Estimate Adequate; Total Cells Counted 100
[2022-04-25 04:11] LABS: Hypochromia Slight; Microcytosis Slight
[2022-04-25 04:43] LABS: Phosphorous 4.9 MG/DL (2.5-4.9)
[2022-04-25 04:44] LABS: Albumin 1.3 G/DL (3.4-5.0); Bilirubin,Total 2.6 MG/DL (0.20-1.00); Calcium 8.6 MG/DL (8.5-10.1); Potassium 2.9 MMOL/L (3.5-5.1); Total Protein 5.8 G/DL (6.4-8.2)
[2022-04-25] MEDS ORDERED: POTASSIUM CHLORIDE RIDER 10 MEQ/100 ML PREMIX IV PRN (04:49)
[2022-04-25] MEDS: POTASSIUM CHLORIDE RIDER 20 MEQ/100 ML PREMIX IV PRN ×2 (06:45→09:40)
[2022-04-25] MEDS ORDERED: FUROSEMIDE 40 MG/4 ML VIAL IV ONE (08:24)
[2022-04-25] MEDS: FUROSEMIDE 40 MG/4 ML VIAL IV SCH ×2 (08:41→21:02)
[2022-04-25] MEDS: PANTOPRAZOLE 40 MG VIAL IV SCH ×2 (08:41→21:03)
[2022-04-25] MEDS: LEVOFLOXACIN INJ 500 MG/100 ML PREMIX IV SCH (08:41)
[2022-04-25] MEDS ORDERED: DEXTROSE 10% 250 ML IV ONE (14:26)
[2022-04-25] MEDS: MEROPENEM 500 MG in SODIUM CHLORIDE 0.9% 100 ML IV SCH (14:33)
[2022-04-25] MEDS: MICAFUNGIN 100 MG in SODIUM CHLORIDE 0.9% 100 ML IV SCH (14:38)
[2022-04-25] MEDS: FAT EMULSION 20% 250 ML IV SCH (14:39)
[2022-04-25] MEDS: [UNRECOGNIZED DRUG - OTHER] IV SCH (16:52)
[2022-04-25] MEDS: POTASSIUM CHLORIDE IV SCH (16:52)
[2022-04-25] MEDS: MULTIVITAMIN IV SCH (16:52)
[2022-04-25] MEDS ORDERED: MULTIVITAMIN IV SCH (17:00)
[2022-04-25] MEDS ORDERED: POTASSIUM CHLORIDE IV SCH (17:00)
[2022-04-25] MEDS ORDERED: [UNRECOGNIZED DRUG - OTHER] IV SCH (17:00)
[2022-04-25] MEDS: ESCITALOPRAM 10 MG TABLET PO SCH (21:03)
[2022-04-26] MEDS: MORPHINE 2 MG/1 ML SYRINGE IV PRN ×5 (01:05→23:26)
[2022-04-26] MEDS: MEROPENEM 500 MG in SODIUM CHLORIDE 0.9% 100 ML IV SCH ×2 (01:06→13:54)
[2022-04-26 06:51] LABS: Basophils # 0.1 10*3/uL (0.0-0.2); Basophils % 0.2 % (0.0-0.8); Hematocrit 33.3 VOL% (35.7-47.0); Hemoglobin 10.2 GM/DL (12.0-16.0); Immature Granulocytes % 2.2 %; Immature Granulocytes Absolute 0.84 #; Lymphocytes # 0.8 10*3/uL (1.4-4.0); Lymphocytes % 2.1 % (21.3-54.2); Mean Corpuscular HGB Conc 30.6 GM/DL (32-36); Mean Corpuscular Volume 80.8 FL (87-102); Monocytes # 1.5 10*3/uL (0.11-0.8); Monocytes % 3.9 % (1.7-12.7); Neutrophils % 91.6 % (38.7-73.9); Red Blood Count 4.12 MC/CUMM (3.8-5.5); White Blood Count 38.13 T/CUMM (4-12)
[2022-04-26 06:52] LABS: Platelet Count 250 T/CUMM (130-400)
[2022-04-26 07:00] LABS: Band Neutrophils 1 % (0-10); Hypochromia Slight; Lymphocytes 1 % (20-55); Microcytosis Slight; Platelet Estimate Adequate; Total Cells Counted 100
[2022-04-26 07:11] LABS: Albumin 1.1 G/DL (3.4-5.0); Bilirubin,Total 2.1 MG/DL (0.20-1.00); Calcium 8.4 MG/DL (8.5-10.1); Osmolality,Calculated 312.1 MOS/KG (273-304); Potassium 4.3 MMOL/L (3.5-5.1); Total Protein 5.7 G/DL (6.4-8.2)
[2022-04-26] MEDS: PANTOPRAZOLE 40 MG VIAL IV SCH ×2 (08:23→20:41)
[2022-04-26] MEDS: HYDROCORTISONE 100 MG VIAL IV SCH ×2 (08:23→20:41)
[2022-04-26] MEDS: FUROSEMIDE 40 MG/4 ML VIAL IV SCH (08:23)
[2022-04-26] MEDS: ALBUMIN 25% 25 GM/100 ML VIAL IV SCH ×2 (10:41→17:30)
[2022-04-26] MEDS: FAT EMULSION 20% 250 ML IV SCH (13:54)
[2022-04-26] MEDS: MICAFUNGIN 100 MG in SODIUM CHLORIDE 0.9% 100 ML IV SCH (14:25)
[2022-04-26] MEDS: POTASSIUM CHLORIDE IV SCH (16:10)
[2022-04-26] MEDS: MULTIVITAMIN IV SCH (16:10)
[2022-04-26] MEDS: [UNRECOGNIZED DRUG - OTHER] IV SCH (16:10)
[2022-04-26] MEDS: ESCITALOPRAM 10 MG TABLET PO SCH (20:40)
[2022-04-26] MEDS: HEPARIN 5,000 UNIT/1 ML VIAL SUBCUT SCH (20:41)
[2022-04-26] MEDS: METOPROLOL TARTRATE 5 MG/5 ML VIAL IV PRN (20:43)
[2022-04-27] MEDS: MEROPENEM 500 MG in SODIUM CHLORIDE 0.9% 100 ML IV SCH ×2 (01:44→16:02)
[2022-04-27] MEDS: METOPROLOL TARTRATE 5 MG/5 ML VIAL IV PRN (01:44)
[2022-04-27] MEDS: ALBUMIN 25% 25 GM/100 ML VIAL IV SCH ×4 (02:40→22:03)
[2022-04-27 03:33] LABS: Basophils # 0.1 10*3/uL (0.0-0.2); Basophils % 0.2 % (0.0-0.8); Hematocrit 31.3 VOL% (35.7-47.0); Hemoglobin 9.5 GM/DL (12.0-16.0); Immature Granulocytes % 2.5 %; Immature Granulocytes Absolute 0.93 #; Lymphocytes # 0.8 10*3/uL (1.4-4.0); Mean Corpuscular HGB Conc 30.4 GM/DL (32-36); Mean Corpuscular Volume 81.9 FL (87-102); Monocytes # 1.4 10*3/uL (0.11-0.8); Monocytes % 3.6 % (1.7-12.7); Neutrophils % 91.7 % (38.7-73.9); Platelet Count 224 T/CUMM (130-400); Red Blood Count 3.82 MC/CUMM (3.8-5.5); Red Cell Distribution Width 22.5 % (9.3-17.3); White Blood Count 37.12 T/CUMM (4-12)
[2022-04-27] MEDS ORDERED: SODIUM CHLORIDE 0.9% 500 ML IV ONE ×3 (03:40→06:14)
[2022-04-27 03:50] LABS: Albumin 2.9 G/DL (3.4-5.0); Bilirubin,Total 2.9 MG/DL (0.20-1.00); Calcium 8.8 MG/DL (8.5-10.1); Osmolality,Calculated 311.1 MOS/KG (273-304); Potassium 4.9 MMOL/L (3.5-5.1); Total Protein 6.6 G/DL (6.4-8.2)
[2022-04-27 03:55] LABS: Hypochromia 1+; Lymphocytes 1 % (20-55); Microcytosis 1+; Platelet Estimate Adequate; Total Cells Counted 100
[2022-04-27] MEDS ORDERED: LACTATED RINGERS 1,000 ML IV ONE (07:26)
[2022-04-27] MEDS ORDERED: METOPROLOL TARTRATE 5 MG/5 ML VIAL IV ONE (07:27)
[2022-04-27] MEDS: MORPHINE 2 MG/1 ML SYRINGE IV PRN (08:27)
[2022-04-27] MEDS ORDERED: DIGOXIN 0.5 MG/2 ML AMP IV ONE (08:50)
[2022-04-27] MEDS: HEPARIN 5,000 UNIT/1 ML VIAL SUBCUT SCH ×2 (09:12→22:03)
[2022-04-27] MEDS: PANTOPRAZOLE 40 MG VIAL IV SCH ×2 (09:12→22:02)
[2022-04-27] MEDS: HYDROCORTISONE 100 MG VIAL IV SCH ×2 (09:13→22:03)
[2022-04-27] MEDS ORDERED: EPINEPHrine 1 MG/10 ML SYRINGE IV ONE (11:54)
[2022-04-27] MEDS ORDERED: SODIUM BICARBONATE 50 MEQ/50 ML SYRINGE IV ONE (11:54)
[2022-04-27 12:40] LABS: Arterial Bicarbonate iSTAT 32.3 MMOL/L (20-26); Arterial pH iSTAT 7.387 (7.35-7.45)
[2022-04-27 12:47] LABS: Basophils % 0.1 % (0.0-0.8); Hematocrit 29.8 VOL% (35.7-47.0); Hemoglobin 8.7 GM/DL (12.0-16.0); Immature Granulocytes % 3.4 %; Immature Granulocytes Absolute 0.98 #; Lymphocytes # 1.5 10*3/uL (1.4-4.0); Lymphocytes % 5.2 % (21.3-54.2); Mean Corpuscular HGB Conc 29.2 GM/DL (32-36); Mean Corpuscular Volume 84.9 FL (87-102); Monocytes # 0.8 10*3/uL (0.11-0.8); Monocytes % 2.8 % (1.7-12.7); NRBC # 0.02 10*3/uL; Neutrophils % 88.5 % (38.7-73.9); Platelet Count 219 T/CUMM (130-400); Red Blood Count 3.51 MC/CUMM (3.8-5.5); Red Cell Distribution Width 22.9 % (9.3-17.3); White Blood Count 28.91 T/CUMM (4-12)
[2022-04-27 13:03] LABS: Alanine Aminotransferase 33 U/L (13-56); Albumin 2.6 G/DL (3.4-5.0); Alkaline Phosphatase 126 U/L (45-117); Aspartate Amino Transferase 76 U/L (0-37); Blood Urea Nitrogen 86 MG/DL (7-18); Calcium 8.2 MG/DL (8.5-10.1); Carbon Dioxide 28 MMOL/L (21-32); Chloride 99 MMOL/L (98-107); Glucose 213 MG/DL (74-106); Osmolality,Calculated 312.3 MOS/KG (273-304); Potassium 5.6 MMOL/L (3.5-5.1); Sodium 141 MMOL/L (136-145); Total Protein 5.4 G/DL (6.4-8.2)
[2022-04-27] MEDS ORDERED: MIDAZOLAM 2 MG/2 ML VIAL IV PRN (13:10)
[2022-04-27 13:16] LABS: Band Neutrophils 1 % (0-10); Lymphocytes 8 % (20-55); Total Cells Counted 100
[2022-04-27 13:17] LABS: Anisocytosis 1+; Hypochromia 1+; Target Cells 1+
[2022-04-27 13:18] LABS: Platelet Estimate Adequate
[2022-04-27] MEDS ORDERED: SODIUM POLYSTYRENE SULFATE 15 GM/60 ML BOTTLE PO ONE (13:21)
[2022-04-27] MEDS: MIDAZOLAM DRIP 100 MG/100 ML PREMIX IV PRN (13:25)
[2022-04-27] MEDS: NOREPINEPHRINE DRIP 8 MG/250 ML PREMIX IV PRN (13:45)
[2022-04-27] MEDS: FAT EMULSION 20% 250 ML IV SCH (14:03)
[2022-04-27] MEDS: MICAFUNGIN 100 MG in SODIUM CHLORIDE 0.9% 100 ML IV SCH (16:03)
[2022-04-27] MEDS ORDERED: MULTIVITAMIN INJ 10 ML in AMINO ACIDS/DEXT/LYTES 4.25-5% 2,000 ML IV SCH (17:00)
[2022-04-27 22:31] LABS: Arterial Bicarbonate iSTAT 38.5 MMOL/L (20-26); Arterial pH iSTAT 7.684 (7.35-7.45)
[2022-04-27] MEDS: ESCITALOPRAM 10 MG TABLET PO SCH (23:29)
[2022-04-28 01:00] LABS: Arterial pH iSTAT 7.624 (7.35-7.45)
[2022-04-28] MEDS: ALBUMIN 25% 25 GM/100 ML VIAL IV SCH (01:30)
[2022-04-28] MEDS: MEROPENEM 500 MG in SODIUM CHLORIDE 0.9% 100 ML IV SCH ×2 (02:00→14:47)
[2022-04-28] MEDS: MIDAZOLAM DRIP 100 MG/100 ML PREMIX IV PRN ×2 (02:12→16:37)
[2022-04-28 04:46] LABS: Arterial Bicarbonate iSTAT 38.7 MMOL/L (20-26); Arterial pH iSTAT 7.625 (7.35-7.45)
[2022-04-28 05:01] LABS: Basophils % 0.1 % (0.0-0.8); Hematocrit 25.3 VOL% (35.7-47.0); Immature Granulocytes % 1.8 %; Immature Granulocytes Absolute 0.38 #; Lymphocytes # 0.8 10*3/uL (1.4-4.0); Lymphocytes % 3.7 % (21.3-54.2); Mean Corpuscular HGB Conc 31.6 GM/DL (32-36); Mean Corpuscular Volume 77.6 FL (87-102); Monocytes # 0.7 10*3/uL (0.11-0.8); Monocytes % 3.4 % (1.7-12.7); Platelet Count 176 T/CUMM (130-400); Red Blood Count 3.26 MC/CUMM (3.8-5.5); Red Cell Distribution Width 22.2 % (9.3-17.3); White Blood Count 21.48 T/CUMM (4-12)
[2022-04-28 05:15] LABS: Phosphorous 4.6 MG/DL (2.5-4.9)
[2022-04-28 05:17] LABS: Albumin 3.4 G/DL (3.4-5.0); Bilirubin,Total 8.2 MG/DL (0.20-1.00); Calcium 8.8 MG/DL (8.5-10.1); Osmolality,Calculated 311.3 MOS/KG (273-304); Potassium 4.9 MMOL/L (3.5-5.1); Total Protein 6.2 G/DL (6.4-8.2)
[2022-04-28 05:49] LABS: Hypochromia 1+; Lymphocytes 1 % (20-55); Microcytosis 1+; Platelet Estimate Adequate; Total Cells Counted 100
[2022-04-28] MEDS: PANTOPRAZOLE 40 MG VIAL IV SCH ×2 (09:41→21:14)
[2022-04-28] MEDS: HYDROCORTISONE 100 MG VIAL IV SCH ×2 (09:42→21:14)
[2022-04-28] MEDS: HEPARIN 5,000 UNIT/1 ML VIAL SUBCUT SCH ×2 (09:42→21:15)
[2022-04-28 10:50] LABS: Arterial Base Excess iSTAT 15 MMOL/L (-2.5-2.5); Arterial Bicarbonate iSTAT 38.2 MMOL/L (20-26); Arterial O2 Saturation iSTAT 100 % (95-100); Arterial PCO2 iSTAT 42 MM HG (35-48); Arterial PO2 iSTAT 162 MM HG (80-95); Arterial Total CO2 iSTAT 40 MMO/L (23-27); Arterial pH iSTAT 7.564 (7.35-7.45)
[2022-04-28 12:33] LABS: INR 1.2; PT Patient Result 12.7 SECS (10.1-12.1)
[2022-04-28] MEDS: FAT EMULSION 20% 250 ML IV SCH (14:46)
[2022-04-28] MEDS: MICAFUNGIN 100 MG in SODIUM CHLORIDE 0.9% 100 ML IV SCH (14:47)
[2022-04-28 15:21] LABS: RBC,Peritoneal Fluid 1033 T/CUMM
[2022-04-28] MEDS: NOREPINEPHRINE DRIP 8 MG/250 ML PREMIX IV PRN (16:38)
[2022-04-28 17:00] LABS: Neutrophils,Peritoneal Fluid 8 %
[2022-04-28] MEDS: AMINO ACIDS IV SCH (17:31)
[2022-04-28] MEDS: DEXTROSE IV SCH (17:31)
[2022-04-28] MEDS: MULTIVITAMIN IV SCH (17:31)
[2022-04-28] MEDS: ESCITALOPRAM 10 MG TABLET PO SCH (21:44)
[2022-04-29] MEDS: MEROPENEM 500 MG in SODIUM CHLORIDE 0.9% 100 ML IV SCH ×2 (01:37→14:53)
[2022-04-29 04:35] LABS: Arterial Bicarbonate iSTAT 35.8 MMOL/L (20-26); Arterial pH iSTAT 7.533 (7.35-7.45)
[2022-04-29 04:52] LABS: Basophils % 0.1 % (0.0-0.8); Eosinophils % 0.1 % (0.00-10.9); Hematocrit 26.5 VOL% (35.7-47.0); Hemoglobin 8.3 GM/DL (12.0-16.0); Immature Granulocytes % 1.5 %; Immature Granulocytes Absolute 0.27 #; Lymphocytes # 0.6 10*3/uL (1.4-4.0); Lymphocytes % 3.2 % (21.3-54.2); Mean Corpuscular HGB Conc 31.3 GM/DL (32-36); Mean Corpuscular Volume 79.6 FL (87-102); Monocytes # 0.6 10*3/uL (0.11-0.8); Monocytes % 3.4 % (1.7-12.7); Neutrophils % 91.7 % (38.7-73.9); Platelet Count 142 T/CUMM (130-400); Red Blood Count 3.33 MC/CUMM (3.8-5.5); Red Cell Distribution Width 21.9 % (9.3-17.3); White Blood Count 17.61 T/CUMM (4-12)
[2022-04-29 05:01] LABS: Albumin 2.3 G/DL (3.4-5.0); Bilirubin,Total 6.7 MG/DL (0.20-1.00); Calcium 8.8 MG/DL (8.5-10.1); Osmolality,Calculated 314.3 MOS/KG (273-304); Potassium 4.3 MMOL/L (3.5-5.1); Total Protein 5.7 G/DL (6.4-8.2)
[2022-04-29 05:17] LABS: Band Neutrophils 1 % (0-10); Hypochromia 1+; Lymphocytes 3 % (20-55); Microcytosis 1+; Total Cells Counted 100
[2022-04-29 05:18] LABS: Anisocytosis 1+; Polychromasia Slight; Target Cells 1+
[2022-04-29] MEDS: MIDAZOLAM DRIP 100 MG/100 ML PREMIX IV PRN ×2 (05:45→18:58)
[2022-04-29] MEDS: HYDROCORTISONE 100 MG VIAL IV SCH (09:33)
[2022-04-29] MEDS: PANTOPRAZOLE 40 MG VIAL IV SCH ×2 (09:33→20:07)
[2022-04-29] MEDS: HEPARIN 5,000 UNIT/1 ML VIAL SUBCUT SCH ×2 (09:33→20:07)
[2022-04-29] MEDS ORDERED: VANCOMYCIN INJ 1,000 MG in SODIUM CHLORIDE 0.9% 250 ML IV ONE (14:00)
[2022-04-29] MEDS: FAT EMULSION 20% 250 ML IV SCH (14:53)
[2022-04-29] MEDS: MICAFUNGIN 100 MG in SODIUM CHLORIDE 0.9% 100 ML IV SCH (14:54)
[2022-04-29] MEDS: MULTIVITAMIN IV SCH (17:14)
[2022-04-29] MEDS: AMINO ACIDS IV SCH (17:14)
[2022-04-29] MEDS: DEXTROSE IV SCH (17:14)
[2022-04-29] MEDS: ESCITALOPRAM 10 MG TABLET PO SCH (20:01)
[2022-04-29] MEDS: METOPROLOL TARTRATE 5 MG/5 ML VIAL IV PRN (21:40)
[2022-04-30] MEDS: MEROPENEM 500 MG in SODIUM CHLORIDE 0.9% 100 ML IV SCH ×2 (01:15→14:17)
[2022-04-30] MEDS: MORPHINE 2 MG/1 ML SYRINGE IV PRN ×2 (02:21→22:12)
[2022-04-30 04:01] LABS: Arterial Base Excess iSTAT 7 MMOL/L (-2.5-2.5); Arterial Bicarbonate iSTAT 31.5 MMOL/L (20-26); Arterial O2 Saturation iSTAT 100 % (95-100); Arterial PCO2 iSTAT 42 MM HG (35-48); Arterial PO2 iSTAT 178 MM HG (80-95); Arterial Total CO2 iSTAT 33 MMO/L (23-27); Arterial pH iSTAT 7.488 (7.35-7.45)
[2022-04-30 04:03] LABS: Basophils % 0.2 % (0.0-0.8); Eosinophils # 0.2 10*3/uL (0.0-0.87); Eosinophils % 0.7 % (0.00-10.9); Hematocrit 27.7 VOL% (35.7-47.0); Hemoglobin 8.8 GM/DL (12.0-16.0); Immature Granulocytes % 2.5 %; Lymphocytes # 0.9 10*3/uL (1.4-4.0); Lymphocytes % 3.9 % (21.3-54.2); Mean Corpuscular HGB Conc 31.8 GM/DL (32-36); Mean Corpuscular Volume 78.9 FL (87-102); Monocytes # 0.9 10*3/uL (0.11-0.8); Monocytes % 3.6 % (1.7-12.7); NRBC # 0.07 10*3/uL; Neutrophils % 89.1 % (38.7-73.9); Platelet Count 166 T/CUMM (130-400); Red Blood Count 3.51 MC/CUMM (3.8-5.5); Red Cell Distribution Width 22.2 % (9.3-17.3); White Blood Count 23.58 T/CUMM (4-12)
[2022-04-30 04:31] LABS: Albumin 1.9 G/DL (3.4-5.0); Bilirubin,Total 7.6 MG/DL (0.20-1.00); Calcium 8.2 MG/DL (8.5-10.1); Osmolality,Calculated 309.7 MOS/KG (273-304); Potassium 3.9 MMOL/L (3.5-5.1); Total Protein 5.7 G/DL (6.4-8.2)
[2022-04-30 05:19] LABS: Anisocytosis 1+; Eosinophils 1 % (0-10); Hypochromia 1+; Nucleated Red Blood Cells 1 /100 WBC (0-5); Platelet Estimate Adequate; Total Cells Counted 100
[2022-04-30] MEDS: MIDAZOLAM DRIP 100 MG/100 ML PREMIX IV PRN ×2 (07:39→23:17)
[2022-04-30] MEDS ORDERED: SODIUM CHLORIDE 0.9% 1,000 ML IV ONE (08:10)
[2022-04-30] MEDS: PANTOPRAZOLE 40 MG VIAL IV SCH ×2 (09:06→20:53)
[2022-04-30] MEDS: HEPARIN 5,000 UNIT/1 ML VIAL SUBCUT SCH ×2 (09:13→20:53)
[2022-04-30] MEDS: HYDROCORTISONE 100 MG VIAL IV SCH (09:14)
[2022-04-30] MEDS ORDERED: VANCOMYCIN INJ 1,000 MG in SODIUM CHLORIDE 0.9% 250 ML IV PRN (14:00)
[2022-04-30] MEDS: FAT EMULSION 20% 250 ML IV SCH (14:57)
[2022-04-30] MEDS: MICAFUNGIN 100 MG in SODIUM CHLORIDE 0.9% 100 ML IV SCH (14:58)
[2022-04-30] MEDS: AMINO ACIDS IV SCH ×3 (17:28→21:25)
[2022-04-30] MEDS: MULTIVITAMIN IV SCH ×3 (17:28→21:25)
[2022-04-30] MEDS: DEXTROSE IV SCH (17:28)
[2022-04-30] MEDS: DEXT IV SCH ×2 (19:14→21:25)
[2022-04-30] MEDS: DEX IV SCH ×2 (19:14→21:25)
[2022-04-30] MEDS: LYTES IV SCH ×2 (19:14→21:25)
[2022-04-30] MEDS: ESCITALOPRAM 10 MG TABLET PO SCH (20:56)
[2022-05-01] MEDS: NOREPINEPHRINE DRIP 8 MG/250 ML PREMIX IV PRN ×2 (01:13→15:31)
[2022-05-01] MEDS: MEROPENEM 500 MG in SODIUM CHLORIDE 0.9% 100 ML IV SCH ×2 (01:59→13:11)
[2022-05-01 03:34] LABS: Arterial Base Excess iSTAT 4 MMOL/L (-2.5-2.5); Arterial Bicarbonate iSTAT 27.8 MMOL/L (20-26); Arterial O2 Saturation iSTAT 99 % (95-100); Arterial PCO2 iSTAT 36 MM HG (35-48); Arterial PO2 iSTAT 124 MM HG (80-95); Arterial Total CO2 iSTAT 29 MMO/L (23-27); Arterial pH iSTAT 7.498 (7.35-7.45)
[2022-05-01 03:38] LABS: Basophils % 0.2 % (0.0-0.8); Eosinophils # 0.1 10*3/uL (0.0-0.87); Eosinophils % 0.6 % (0.00-10.9); Hematocrit 26.5 VOL% (35.7-47.0); Hemoglobin 8.4 GM/DL (12.0-16.0); Immature Granulocytes % 3.6 %; Immature Granulocytes Absolute 0.87 #; Lymphocytes % 3.9 % (21.3-54.2); Mean Corpuscular HGB Conc 31.7 GM/DL (32-36); Mean Corpuscular Volume 79.8 FL (87-102); Monocytes # 0.8 10*3/uL (0.11-0.8); Monocytes % 3.4 % (1.7-12.7); NRBC # 0.04 10*3/uL; Neutrophils % 88.3 % (38.7-73.9); Platelet Count 176 T/CUMM (130-400); Red Blood Count 3.32 MC/CUMM (3.8-5.5); Red Cell Distribution Width 22.3 % (9.3-17.3); White Blood Count 24.49 T/CUMM (4-12)
[2022-05-01 04:20] LABS: Albumin 1.5 G/DL (3.4-5.0); Bilirubin,Total 7.2 MG/DL (0.20-1.00); Calcium 7.9 MG/DL (8.5-10.1); Osmolality,Calculated 312.8 MOS/KG (273-304); Potassium 4.4 MMOL/L (3.5-5.1)
[2022-05-01 05:11] LABS: Anisocytosis 1+; Band Neutrophils 2 % (0-10); Lymphocytes 1 % (20-55); Platelet Estimate Adequate; Polychromasia 1+; Total Cells Counted 100
[2022-05-01 05:12] LABS: Hypochromia 1+
[2022-05-01] MEDS: PANTOPRAZOLE 40 MG VIAL IV SCH ×2 (08:31→21:00)
[2022-05-01] MEDS: HEPARIN 5,000 UNIT/1 ML VIAL SUBCUT SCH ×2 (08:31→21:00)
[2022-05-01] MEDS: HYDROCORTISONE 100 MG VIAL IV SCH (08:31)
[2022-05-01] MEDS ORDERED: FUROSEMIDE 40 MG/4 ML VIAL IV ONE (09:35)
[2022-05-01] MEDS: METOPROLOL TARTRATE 25 MG TABLET PO SCH ×2 (10:25→21:01)
[2022-05-01] MEDS: FERROUS SULFATE 325 MG TABLET PO SCH (10:25)
[2022-05-01] MEDS: MULTIVITAMIN IV SCH (12:44)
[2022-05-01] MEDS: LYTES IV SCH (12:44)
[2022-05-01] MEDS: DEXT IV SCH (12:44)
[2022-05-01] MEDS: AMINO ACIDS IV SCH (12:44)
[2022-05-01] MEDS: DEX IV SCH (12:44)
[2022-05-01] MEDS: MICAFUNGIN 100 MG in SODIUM CHLORIDE 0.9% 100 ML IV SCH (13:11)
[2022-05-01] MEDS ORDERED: VANCOMYCIN INJ 1,000 MG in SODIUM CHLORIDE 0.9% 250 ML IV ONE (14:30)
[2022-05-01] MEDS: FAT EMULSION 20% 250 ML IV SCH (15:27)
[2022-05-01] MEDS: MIDAZOLAM DRIP 100 MG/100 ML PREMIX IV PRN (17:07)
[2022-05-01] MEDS: ESCITALOPRAM 10 MG TABLET PO SCH (21:01)
[2022-05-02] MEDS: MEROPENEM 500 MG in SODIUM CHLORIDE 0.9% 100 ML IV SCH ×2 (01:15→13:51)
[2022-05-02 03:33] LABS: Arterial Bicarbonate iSTAT 25.6 MMOL/L (20-26); Arterial pH iSTAT 7.44 (7.35-7.45)
[2022-05-02] MEDS: NOREPINEPHRINE DRIP 8 MG/250 ML PREMIX IV PRN ×2 (03:37→22:54)
[2022-05-02] MEDS: DEX IV SCH (03:38)
[2022-05-02] MEDS: AMINO ACIDS IV SCH (03:38)
[2022-05-02] MEDS: DEXT IV SCH (03:38)
[2022-05-02] MEDS: MULTIVITAMIN IV SCH (03:38)
[2022-05-02] MEDS: LYTES IV SCH (03:38)
[2022-05-02 04:11] LABS: Phosphorous 6.9 MG/DL (2.5-4.9)
[2022-05-02 04:27] LABS: Albumin 1.5 G/DL (3.4-5.0); Bilirubin,Total 5.5 MG/DL (0.20-1.00); Calcium 8.1 MG/DL (8.5-10.1); Osmolality,Calculated 310.2 MOS/KG (273-304); Potassium 4.9 MMOL/L (3.5-5.1); Total Protein 5.5 G/DL (6.4-8.2)
[2022-05-02] MEDS: FERROUS SULFATE 325 MG TABLET PO SCH (08:09)
[2022-05-02] MEDS: METOPROLOL TARTRATE 25 MG TABLET PO SCH (08:09)
[2022-05-02] MEDS: PANTOPRAZOLE 40 MG VIAL IV SCH ×2 (08:30→21:29)
[2022-05-02] MEDS: HEPARIN 5,000 UNIT/1 ML VIAL SUBCUT SCH ×2 (08:30→21:26)
[2022-05-02] MEDS: ONDANSETRON 4 MG/2 ML VIAL IV PRN (08:30)
[2022-05-02] MEDS: HYDROCORTISONE 100 MG VIAL IV SCH (08:30)
[2022-05-02] MEDS: METOPROLOL TARTRATE 5 MG/5 ML VIAL IV SCH ×4 (10:42→22:18)
[2022-05-02] MEDS ORDERED: DIGOXIN 0.5 MG/2 ML AMP IV ONE ×2 (11:11→12:00)
[2022-05-02] MEDS: MIDAZOLAM DRIP 100 MG/100 ML PREMIX IV PRN (13:01)
[2022-05-02] MEDS: FAT EMULSION 20% 250 ML IV SCH (13:51)
[2022-05-02] MEDS: MICAFUNGIN 100 MG in SODIUM CHLORIDE 0.9% 100 ML IV SCH (14:15)
[2022-05-02] MEDS ORDERED: MULTIVITAMIN IV SCH (17:00)
[2022-05-02] MEDS ORDERED: AMINO ACIDS IV SCH (17:00)
[2022-05-02] MEDS ORDERED: DEXTROSE IV SCH (17:00)
[2022-05-02] MEDS: MORPHINE 2 MG/1 ML SYRINGE IV PRN (17:40)
[2022-05-03] MEDS: MEROPENEM 500 MG in SODIUM CHLORIDE 0.9% 100 ML IV SCH ×2 (02:26→13:11)
[2022-05-03] MEDS: ONDANSETRON 4 MG/2 ML VIAL IV PRN (03:16)
[2022-05-03 04:09] LABS: Arterial Base Excess iSTAT -1 MMOL/L (-2.5-2.5); Arterial Bicarbonate iSTAT 22.8 MMOL/L (20-26); Arterial O2 Saturation iSTAT 99 % (95-100); Arterial PCO2 iSTAT 34 MM HG (35-48); Arterial PO2 iSTAT 132 MM HG (80-95); Arterial Total CO2 iSTAT 24 MMO/L (23-27); Arterial pH iSTAT 7.429 (7.35-7.45)
[2022-05-03] MEDS: METOPROLOL TARTRATE 5 MG/5 ML VIAL IV SCH ×6 (04:09→23:27)
[2022-05-03 04:15] LABS: Basophils # 0.1 10*3/uL (0.0-0.2); Basophils % 0.2 % (0.0-0.8); Eosinophils # 0.1 10*3/uL (0.0-0.87); Eosinophils % 0.4 % (0.00-10.9); Hematocrit 26.6 VOL% (35.7-47.0); Immature Granulocytes % 2.9 %; Immature Granulocytes Absolute 0.75 #; Lymphocytes # 1.1 10*3/uL (1.4-4.0); Lymphocytes % 4.3 % (21.3-54.2); Mean Corpuscular HGB Conc 30.1 GM/DL (32-36); Mean Corpuscular Volume 82.1 FL (87-102); Monocytes % 3.9 % (1.7-12.7); NRBC # 0.04 10*3/uL; Neutrophils % 88.3 % (38.7-73.9); Platelet Count 274 T/CUMM (130-400); Red Blood Count 3.24 MC/CUMM (3.8-5.5); Red Cell Distribution Width 22.6 % (9.3-17.3); White Blood Count 26.11 T/CUMM (4-12)
[2022-05-03 04:32] LABS: Albumin 1.3 G/DL (3.4-5.0); Bilirubin,Total 5.6 MG/DL (0.20-1.00); Calcium 7.9 MG/DL (8.5-10.1); Osmolality,Calculated 309.7 MOS/KG (273-304); Phosphorous 7.4 MG/DL (2.5-4.9); Potassium 5.1 MMOL/L (3.5-5.1); Total Protein 6.1 G/DL (6.4-8.2)
[2022-05-03 04:50] LABS: Eosinophils 2 % (0-10); Hypochromia 1+; Lymphocytes 6 % (20-55); Polychromasia Slight; Total Cells Counted 100
[2022-05-03 04:51] LABS: Anisocytosis 1+; Microcytosis 1+; Target Cells Slight
[2022-05-03 05:01] LABS: Platelet Estimate Normal
[2022-05-03] MEDS ORDERED: FUROSEMIDE 40 MG/4 ML VIAL IV ONE (08:24)
[2022-05-03] MEDS ORDERED: ALBUMIN 25% 12.5 GM/50 ML VIAL IV ONE (08:25)
[2022-05-03] MEDS: HYDROCORTISONE 100 MG VIAL IV SCH (08:28)
[2022-05-03] MEDS: HEPARIN 5,000 UNIT/1 ML VIAL SUBCUT SCH ×2 (08:29→20:47)
[2022-05-03] MEDS: PANTOPRAZOLE 40 MG VIAL IV SCH ×2 (08:29→20:50)
[2022-05-03] MEDS: MIDAZOLAM DRIP 100 MG/100 ML PREMIX IV PRN (09:38)
[2022-05-03] MEDS: DIGOXIN 0.5 MG/2 ML AMP IV SCH (10:21)
[2022-05-03] MEDS: NOREPINEPHRINE DRIP 8 MG/250 ML PREMIX IV PRN (11:09)
[2022-05-03] MEDS: FAT EMULSION 20% 250 ML IV SCH (13:11)
[2022-05-03] MEDS: MICAFUNGIN 100 MG in SODIUM CHLORIDE 0.9% 100 ML IV SCH (15:29)
[2022-05-03] MEDS: AMINO ACIDS 10% IV SCH (16:40)
[2022-05-03] MEDS: DEXTROSE 70% IV SCH (16:40)
[2022-05-03] MEDS: MORPHINE 2 MG/1 ML SYRINGE IV PRN (19:38)
[2022-05-04] MEDS: MEROPENEM 500 MG in SODIUM CHLORIDE 0.9% 100 ML IV SCH ×2 (02:12→14:01)
[2022-05-04] MEDS: METOPROLOL TARTRATE 5 MG/5 ML VIAL IV SCH ×6 (02:18→23:09)
[2022-05-04 03:25] LABS: Arterial Base Excess iSTAT -5 MMOL/L (-2.5-2.5); Arterial Bicarbonate iSTAT 18.9 MMOL/L (20-26); Arterial O2 Saturation iSTAT 99 % (95-100); Arterial PCO2 iSTAT 32 MM HG (35-48); Arterial PO2 iSTAT 123 MM HG (80-95); Arterial Total CO2 iSTAT 20 MMO/L (23-27); Arterial pH iSTAT 7.386 (7.35-7.45)
[2022-05-04 03:32] LABS: Basophils % 0.1 % (0.0-0.8); Eosinophils # 0.1 10*3/uL (0.0-0.87); Eosinophils % 0.5 % (0.00-10.9); Hematocrit 24.4 VOL% (35.7-47.0); Hemoglobin 7.4 GM/DL (12.0-16.0); Immature Granulocytes % 4.5 %; Immature Granulocytes Absolute 0.88 #; Lymphocytes # 1.2 10*3/uL (1.4-4.0); Lymphocytes % 5.9 % (21.3-54.2); Mean Corpuscular HGB Conc 30.3 GM/DL (32-36); Mean Corpuscular Volume 83.3 FL (87-102); Mean Platelet Volume 13.4 FL (9.6-12.0); Monocytes # 0.7 10*3/uL (0.11-0.8); Monocytes % 3.7 % (1.7-12.7); NRBC # 0.04 10*3/uL; Neutrophils % 85.3 % (38.7-73.9); Platelet Count 259 T/CUMM (130-400); Red Blood Count 2.93 MC/CUMM (3.8-5.5); Red Cell Distribution Width 22.4 % (9.3-17.3); White Blood Count 19.47 T/CUMM (4-12)
[2022-05-04 03:56] LABS: Albumin 1.6 G/DL (3.4-5.0); Bilirubin,Total 6.6 MG/DL (0.20-1.00); Calcium 8.1 MG/DL (8.5-10.1); Osmolality,Calculated 314.1 MOS/KG (273-304); Potassium 4.9 MMOL/L (3.5-5.1); Total Protein 6.2 G/DL (6.4-8.2)
[2022-05-04 04:09] LABS: Hypochromia Slight; Lymphocytes 6 % (20-55); Microcytosis Slight; Nucleated Red Blood Cells 1 /100 WBC (0-5); Platelet Estimate Adequate; Total Cells Counted 100
[2022-05-04] MEDS: NOREPINEPHRINE DRIP 8 MG/250 ML PREMIX IV PRN ×3 (05:05→21:50)
[2022-05-04] MEDS: MIDAZOLAM DRIP 100 MG/100 ML PREMIX IV PRN ×2 (06:46→20:25)
[2022-05-04] MEDS: HEPARIN 5,000 UNIT/1 ML VIAL SUBCUT SCH ×2 (10:11→20:26)
[2022-05-04] MEDS: DIGOXIN 0.5 MG/2 ML AMP IV SCH (10:14)
[2022-05-04] MEDS: PANTOPRAZOLE 40 MG VIAL IV SCH ×2 (10:15→20:26)
[2022-05-04] MEDS: HYDROCORTISONE 100 MG VIAL IV SCH (10:33)
[2022-05-04] MEDS: MICAFUNGIN 100 MG in SODIUM CHLORIDE 0.9% 100 ML IV SCH (14:02)
[2022-05-04] MEDS: DEXTROSE 70% IV SCH (16:50)
[2022-05-04] MEDS: AMINO ACIDS 10% IV SCH (16:50)
[2022-05-04] MEDS: MORPHINE 2 MG/1 ML SYRINGE IV PRN (21:07)
[2022-05-05] MEDS: ONDANSETRON 4 MG/2 ML VIAL IV PRN ×2 (00:08→04:53)
[2022-05-05] MEDS: MEROPENEM 500 MG in SODIUM CHLORIDE 0.9% 100 ML IV SCH ×2 (02:36→13:41)
[2022-05-05] MEDS: METOPROLOL TARTRATE 5 MG/5 ML VIAL IV SCH ×6 (03:06→23:15)
[2022-05-05 03:34] LABS: Arterial Base Excess iSTAT -7 MMOL/L (-2.5-2.5); Arterial Bicarbonate iSTAT 18.1 MMOL/L (20-26); Arterial O2 Saturation iSTAT 98 % (95-100); Arterial PCO2 iSTAT 33 MM HG (35-48); Arterial PO2 iSTAT 118 MM HG (80-95); Arterial Total CO2 iSTAT 19 MMO/L (23-27); Arterial pH iSTAT 7.349 (7.35-7.45)
[2022-05-05 03:42] LABS: Basophils % 0.2 % (0.0-0.8); Eosinophils # 0.1 10*3/uL (0.0-0.87); Eosinophils % 0.3 % (0.00-10.9); Hematocrit 22.8 VOL% (35.7-47.0); Hemoglobin 7.2 GM/DL (12.0-16.0); Immature Granulocytes Absolute 0.53 #; Lymphocytes # 1.2 10*3/uL (1.4-4.0); Lymphocytes % 6.8 % (21.3-54.2); Mean Corpuscular HGB Conc 31.6 GM/DL (32-36); Mean Corpuscular Volume 81.7 FL (87-102); Monocytes # 0.7 10*3/uL (0.11-0.8); NRBC # 0.06 10*3/uL; Neutrophils % 85.7 % (38.7-73.9); Platelet Count 329 T/CUMM (130-400); Red Blood Count 2.79 MC/CUMM (3.8-5.5); Red Cell Distribution Width 22.3 % (9.3-17.3); White Blood Count 17.83 T/CUMM (4-12)
[2022-05-05 04:02] LABS: Eosinophils 1 % (0-10); Lymphocytes 2 % (20-55); Platelet Estimate Adequate; Total Cells Counted 100
[2022-05-05 04:03] LABS: Hypochromia Slight; Microcytosis Slight
[2022-05-05 04:05] LABS: Albumin 1.3 G/DL (3.4-5.0); Bilirubin,Total 7.9 MG/DL (0.20-1.00); Calcium 7.9 MG/DL (8.5-10.1); Osmolality,Calculated 314.4 MOS/KG (273-304); Potassium 5.1 MMOL/L (3.5-5.1)
[2022-05-05] MEDS: MORPHINE 2 MG/1 ML SYRINGE IV PRN (04:59)
[2022-05-05] MEDS: NOREPINEPHRINE DRIP 8 MG/250 ML PREMIX IV PRN ×3 (06:28→21:18)
[2022-05-05] MEDS ORDERED: FUROSEMIDE 40 MG/4 ML VIAL IV ONE (08:11)
[2022-05-05] MEDS ORDERED: ALBUMIN 25% 12.5 GM/50 ML VIAL IV ONE (08:12)
[2022-05-05] MEDS: HEPARIN 5,000 UNIT/1 ML VIAL SUBCUT SCH ×2 (08:23→20:22)
[2022-05-05] MEDS: HYDROCORTISONE 100 MG VIAL IV SCH (08:24)
[2022-05-05] MEDS: PANTOPRAZOLE 40 MG VIAL IV SCH ×2 (08:24→20:20)
[2022-05-05] MEDS: DIGOXIN 0.5 MG/2 ML AMP IV SCH (08:24)
[2022-05-05] MEDS ORDERED: FUROSEMIDE INJ 200 MG in SODIUM CHLORIDE 0.9% 50 ML IV ONE (08:30)
[2022-05-05] MEDS: MIDAZOLAM DRIP 100 MG/100 ML PREMIX IV PRN (11:20)
[2022-05-05] MEDS: MICAFUNGIN 100 MG in SODIUM CHLORIDE 0.9% 100 ML IV SCH (13:42)
[2022-05-05] MEDS ORDERED: SODIUM BICARBONATE 50 MEQ/50 ML VIAL IV ONE (14:19)
[2022-05-05] MEDS: AMINO ACIDS 10% IV SCH (17:42)
[2022-05-05] MEDS: DEXTROSE 70% IV SCH (17:42)
[2022-05-06] MEDS: MIDAZOLAM DRIP 100 MG/100 ML PREMIX IV PRN ×2 (01:37→16:54)
[2022-05-06] MEDS: METOPROLOL TARTRATE 5 MG/5 ML VIAL IV SCH ×6 (02:30→22:07)
[2022-05-06] MEDS: MEROPENEM 500 MG in SODIUM CHLORIDE 0.9% 100 ML IV SCH ×2 (02:32→13:32)
[2022-05-06] MEDS: MORPHINE 2 MG/1 ML SYRINGE IV PRN ×5 (02:35→20:58)
[2022-05-06 03:50] LABS: Arterial Base Excess iSTAT -8 MMOL/L (-2.5-2.5); Arterial Bicarbonate iSTAT 17.4 MMOL/L (20-26); Arterial O2 Saturation iSTAT 98 % (95-100); Arterial PCO2 iSTAT 34 MM HG (35-48); Arterial PO2 iSTAT 119 MM HG (80-95); Arterial Total CO2 iSTAT 18 MMO/L (23-27); Arterial pH iSTAT 7.322 (7.35-7.45)
[2022-05-06 03:56] LABS: Basophils % 0.1 % (0.0-0.8); Eosinophils % 0.3 % (0.00-10.9); Hematocrit 20.7 VOL% (35.7-47.0); Hemoglobin 6.5 GM/DL (12.0-16.0); Immature Granulocytes % 1.1 %; Immature Granulocytes Absolute 0.16 #; Lymphocytes % 7.2 % (21.3-54.2); Mean Corpuscular HGB Conc 31.4 GM/DL (32-36); Mean Corpuscular Volume 81.8 FL (87-102); Monocytes # 0.6 10*3/uL (0.11-0.8); Monocytes % 3.8 % (1.7-12.7); NRBC # 0.06 10*3/uL; Neutrophils % 87.5 % (38.7-73.9); Platelet Count 345 T/CUMM (130-400); Red Blood Count 2.53 MC/CUMM (3.8-5.5); Red Cell Distribution Width 21.8 % (9.3-17.3); White Blood Count 14.45 T/CUMM (4-12)
[2022-05-06 04:14] LABS: Band Neutrophils 1 % (0-10); Lymphocytes 5 % (20-55); Total Cells Counted 100
[2022-05-06 04:15] LABS: Hypochromia 1+; Microcytosis 1+; Platelet Estimate Adequate
[2022-05-06 04:32] LABS: Albumin 1.3 G/DL (3.4-5.0); Bilirubin,Total 9.1 MG/DL (0.20-1.00); Calcium 8.2 MG/DL (8.5-10.1); Osmolality,Calculated 319.6 MOS/KG (273-304); Potassium 5.2 MMOL/L (3.5-5.1)
[2022-05-06] MEDS: NOREPINEPHRINE DRIP 8 MG/250 ML PREMIX IV PRN ×3 (04:41→21:25)
[2022-05-06] MEDS ORDERED: SODIUM CHLORIDE 0.9% 1,000 ML IV PRN (05:38)
[2022-05-06] MEDS: PANTOPRAZOLE 40 MG VIAL IV SCH ×2 (08:51→20:25)
[2022-05-06] MEDS: DIGOXIN 0.5 MG/2 ML AMP IV SCH (08:51)
[2022-05-06] MEDS: HYDROCORTISONE 100 MG VIAL IV SCH (08:51)
[2022-05-06] MEDS: HEPARIN 5,000 UNIT/1 ML VIAL SUBCUT SCH ×2 (08:51→20:25)
[2022-05-06] MEDS ORDERED: LORazepam 2 MG/1 ML VIAL IV PRN (10:31)
[2022-05-06 13:33] VITALS: BP 127/52
[2022-05-06] MEDS: MICAFUNGIN 100 MG in SODIUM CHLORIDE 0.9% 100 ML IV SCH (14:03)
[2022-05-06] MEDS: DEXTROSE 70% IV SCH (17:02)
[2022-05-06] MEDS: AMINO ACIDS 10% IV SCH (17:02)
[2022-05-07] MEDS: METOPROLOL TARTRATE 5 MG/5 ML VIAL IV SCH ×6 (02:18→23:50)
[2022-05-07] MEDS: MEROPENEM 500 MG in SODIUM CHLORIDE 0.9% 100 ML IV SCH (03:20)
[2022-05-07] MEDS: NOREPINEPHRINE DRIP 8 MG/250 ML PREMIX IV PRN ×2 (07:31→17:24)
[2022-05-07] MEDS: MIDAZOLAM DRIP 100 MG/100 ML PREMIX IV PRN (07:43)
[2022-05-07] MEDS: DIGOXIN 0.5 MG/2 ML AMP IV SCH (09:32)
[2022-05-07] MEDS: PANTOPRAZOLE 40 MG VIAL IV SCH ×2 (09:36→20:35)
[2022-05-07] MEDS: HEPARIN 5,000 UNIT/1 ML VIAL SUBCUT SCH (09:44)
[2022-05-07] MEDS: HYDROCORTISONE 100 MG VIAL IV SCH (09:44)
[2022-05-07] MEDS: MICAFUNGIN 100 MG in SODIUM CHLORIDE 0.9% 100 ML IV SCH (14:13)
[2022-05-08] MEDS: METOPROLOL TARTRATE 5 MG/5 ML VIAL IV SCH (02:10)
[2022-05-08] MEDS: NOREPINEPHRINE DRIP 8 MG/250 ML PREMIX IV PRN (03:10)
== END 2022-05-08 04:17 | disposition expired | DRG 981 ==
LOC: N.ED 08:59 → N.EDINP 08:59 → SUATTDRO 17:59 → N.EDINP 20:38 → N.2E 03-20 00:21 → SUATTDRO 03-21 10:34 → N.2E 04-08 13:52 → N.ICU 04-15 01:14 → N.2E 04-17 16:54 → N.CC 04-21 12:13
PROVIDERS: ADMIT Hospitalist; ATTEND Internal Medicine
PROC: IRGITIN (2022-04-14 14:20)